=== PATIENT | female | born 1945 | race Caucasian/White ===

== ENCOUNTER → 2020-01-27 11:57 | Outpatient (BNVA) | payer MEDICARE, OTHER, SELFPAY | PROVIDERS: Family Provider Family Medicine; PCP Family Medicine; Visit Provider Family Medicine | DX: M25.511 Pain in right shoulder (principal); I10 Essential (primary) hypertension | CPT/HCPCS: 80053; 80061; 85025 ==

== ENCOUNTER → 2020-03-08 11:00 | Outpatient (BNVA) | payer MEDICARE, OTHER, SELFPAY | PROVIDERS: Family Provider Family Medicine; PCP Family Medicine; Visit Provider Family Medicine | DX: M25.511 Pain in right shoulder (principal); I10 Essential (primary) hypertension; M23.301 Other meniscus derangements, unspecified lateral meniscus, left knee; Z68.29 Body mass index [BMI] 29.0-29.9, adult | CPT/HCPCS: 80048 ==

== ENCOUNTER 2020-03-16 11:05 | Outpatient (CLI) | payer MEDICARE, OTHER, SELFPAY ==
--- NOTE | 2020-03-16 11:12 | XR_ITS ---
WS: [id number] LEFT KNEE: 3 VIEW(S) TECHNIQUE: AP, oblique(s) and lateral. HISTORY: left knee pain COMPARISON: 03/25/2017 No fracture or dislocation. Mild tricompartment osteoarthritis. Small marginal osteophytes in all compartments. No joint effusion. No soft tissue abnormality. XR/XR knee LT 3V* [id number] IMPRESSION: Mild tricompartment osteoarthritis.
== END 2020-03-16 11:06 | disposition home or self-care (01) ==
LOC: RADWPI 11:10
PROVIDERS: Family Provider Family Medicine; PCP Family Medicine; Visit Provider Family Medicine
DX: M17.12 Unilateral primary osteoarthritis, left knee (principal)
CPT/HCPCS: 73562

== ENCOUNTER → 2020-04-09 11:00 | Outpatient (BNVA) | payer MEDICARE, OTHER, SELFPAY | PROVIDERS: Family Provider Family Medicine; PCP Family Medicine; Visit Provider Specialist | DX: M25.562 Pain in left knee (principal) | CPT/HCPCS: 73560; 73565 ==

== ENCOUNTER 2020-09-21 14:23 | Outpatient (CLI) | payer MEDICARE, OTHER, SELFPAY ==
--- NOTE | 2020-09-21 14:30 | MR_ITS ---
WS: [id number] MRI RIGHT SHOULDER NONCONTRAST TECHNIQUE: Sagittal T2, coronal T1, T2 and proton density imaging. Axial gradient PDE imaging. CLINICAL INFORMATION: RIGHT GLENOHUMERAL ARTHRITIS COMPARISON: None. FINDINGS: Moderate degenerative arthritis at the AC joint with mild edema. Mild downsloping acromion. Subacromi al spurring. Mild narrowing of the subacromial space. Chronic thinning of the distal supraspinatus. N ormal infraspinatus. Normal teres minor and subscapularis. Normal biceps tendon in the bicipital groo ve. Slight medial subluxation of the biceps tendon proximally with thinning of the distal subscapular is tendon. Advanced degenerative arthritis involving the glenohumeral joint and humeral head and neck with hyper trophic spurring and subchondral cystic change. Degenerative fraying of the labrum. Small subcoracoid effusion. MR/MR shoulder RT wo con* [id number] IMPRESSION: 1. Advanced degenerative arthritis at the AC joint and glenohumeral joint with hypertrophic spurring. 2. Chronic thinning of the distal supraspinatus. Rotator cuff is intact. No hi gh-grade rotator cuff tears. 3. Normal biceps tendon in the bicipital groove. Slight medial subluxation of the biceps tendon proximally with thinning of the distal subscapularis tendon. 4. Hypertrophic spurring about the humeral head and neck and bony glenoid.
== END 2020-09-21 14:24 | disposition home or self-care (01) ==
LOC: RADWPI 14:26
PROVIDERS: PCP Family Medicine; Visit Provider Orthopaedic Surgery
DX: M19.011 Primary osteoarthritis, right shoulder (principal)
CPT/HCPCS: 73221

== ENCOUNTER 2021-01-09 20:24 | Emergency (ER) | payer MEDICARE, OTHER, SELFPAY ==
[2021-01-09 20:46] VITALS: BP 154/73; PULSE 102; RESP 17; TEMP 39.4; O2SAT 93; BMI 28.7
--- NOTE | 2021-01-09 20:58 | CTR_ITS ---
PROCEDURE INFORMATION: Exam: CT Abdomen And Pelvis With Contrast Exam date and time: 01/09/2021 8:58 PM Age: 75 years old Clinical indication: Fever and other: Possible UTI; Prior surgery; Surgery type: Tubal, RT hip; Additional info: Abdominal pain TECHNIQUE: Imaging protocol: Computed tomography of the abdomen and pelvis with contrast. Radiation optimization: All CT scans at this facility use at least one of these dose optimization techniques: automated exposure control; mA and/or kV adjustment per patient size (includes targeted exams where dose is matched to clinical indication); or iterative reconstruction. Contrast material: OMNI 300; Contrast volume: 95 ml; Contrast route: INTRAVENOUS (IV); COMPARISON: 1. CR Hip 2-3v RIGHT wwo Pelv* [id number] 12/02/2016 3:36 PM 2. OT Hip 1v RIGHT wwo Pelvis [id number] 12/02/2016 2:21 PM RADIATION DOSE METRICS: Total DLP (mGy-cm): 1437.58 FINDINGS: Lungs: Bibasilar atelectasis versus minimal infiltrate. Liver: Normal. No mass. Gallbladder and bile ducts: Gallbladder appears somewhat prominent with perhaps some wall thickening, ultrasound could further evaluate this. Pancreas: Normal. No ductal dilation. Spleen: Normal. No splenomegaly. Adrenal glands: Normal. No mass. Kidneys and ureters: Right kidney cyst, negative for follow-up advised. Stomach and bowel: Constipation. Appendix: No evidence of appendicitis. Intraperitoneal space: Unremarkable. No free air. No significant fluid collection. Vasculature: Unremarkable. No abdominal aortic aneurysm. Lymph nodes: Unremarkable. No enlarged lymph nodes. Urinary bladder: Unremarkable as visualized. Reproductive: Unremarkable as visualized. Bones/joints: Right femoral arthroplasty changes. Left femoral head nonaggressive sclerotic bony lesion. Soft tissues: Unremarkable. CT/CT abdomen pelvis w con* [id number] IMPRESSION: 1. Gallbladder appears somewhat prominent with perhaps some wall thickening, ultrasound could further evaluate this. 2. Bibasilar atelectasis versus minimal infiltrate. 3. Right kidney cyst, negative for follow-up advised. 4. Constipation. 5. Right femoral arthroplasty changes. 6. Left femoral head nonaggressive sclerotic bony lesion. COMMENTS: Consistent with the [employer]'s Incidental Findings Committee white paper (J Am Doug Radiol 2018): Any incidental renal lesion less than 1 cm or classified as too small to characterize, or any incidental cystic renal lesion characterized as simple-appearing, is likely benign. No follow-up imaging is recommended for these lesions per consensus recommendations based on imaging criteria. Radiation Dose CTDIVOL = (mGy): DLP = 1437.58 (mGy-cm)
--- NOTE | 2021-01-09 20:58 | XRR_ITS ---
PROCEDURE INFORMATION: Exam: XR Chest Exam date and time: 01/09/2021 8:58 PM Age: 75 years old Clinical indication: Other: Tired; Additional info: Reduced breath sounds TECHNIQUE: Imaging protocol: XR of the chest. Views: 1 view. COMPARISON: 1. CR Chest 2 views* [id number] 11/28/2016 12:44 PM 2. CR Chest 2 views* [id number] 11/15/2015 2:56 PM 3. MR shoulder RT wo con* [id number] 09/21/2020 2:41 PM FINDINGS: Tubes, catheters and devices: Small metallic density over the left neck may be external to the patient, please correlate with history Lungs: Unremarkable. No consolidation. Pleural spaces: Unremarkable. No pleural effusion. No pneumothorax. Heart/Mediastinum: Unremarkable. No cardiomegaly. Bones/joints: Unremarkable. XR/XR chest 1V portable [id number] IMPRESSION: Negative for infiltrate.
[2021-01-09] MEDS: acetaminophen 325 mg Tablet 1000 MG PO (21:26)
[2021-01-09] MEDS: sodium chloride 0.9% 1,000 ML 999 ML IV (21:26)
[2021-01-09 21:28] VITALS: BP 184/77; PULSE 104; RESP 18; O2SAT 95
[2021-01-09 21:37] LABS: Hematocrit 45.9 % (37.0-47.0); Hemoglobin 15.6 g/dL (11.5-15.3); Mean Corpuscular Hemoglobin 29.9 pg (28.0-34.0); Mean Corpuscular Volume 88.1 fL (81-99); Mean Platelet Volume 11.6 fL (7.4-10.4); Platelet Count 81 10^3/cmm (130-400); Red Blood Count 5.21 10^6/uL (4.1-5.3); Red Cell Distribution Width 12.5 % (12.1-15.1); White Blood Count 3.3 10^3/uL (4.0-10.0)
[2021-01-09 21:47] LABS: HCG, Serum Qual Negative (Negative)
[2021-01-09 21:57] LABS: Alanine Aminotransferase 53 U/L (0-33); Albumin Level 3.9 g/dL (3.5-5.2); Alkaline Phosphatase 104 IU/L (35-105); Aspartate Amino Transferase 71 U/L (0-32); Blood Urea Nitrogen 14 mg/dL (8-23); Calcium 8.5 mg/dL (8.5-10.5); Carbon Dioxide 21 mmol/L (22-29); Chloride 94 mmol/L (98-107); Globulin 2.9 g/dL (1.3-4.6); Glucose 134 mg/dL (65-115); Lipase 17 U/L (13-60); Osmolality Calculated 268 mOsm/kg (285-295); Sodium 128 mmol/L (136-145); Total Bilirubin 0.6 mg/dL (0.15-1.2); Total Protein 6.8 g/dL (6.6-8.7)
[2021-01-09 21:59] LABS: Anion Gap 17.1 (5-19); Potassium 4.1 mmol/L (3.5-5.1)
[2021-01-09 22:13] LABS: Absolute Neutrophil 2.6 10^3/cmm (1.4-6.5); Absolute Segmented Neutrophil 1.9 10/cmm (1.6-7.1); Band Neutrophils Absolute 0.7 10^3/cmm (0.0-1.2); Eosinophils 0 %; Lymphocytes 18 %; Lymphocytes Absolute 0.6 10^3/cmm (1.2-3.4); Monocytes Absolute 0.1 10^3/cmm (0.1-0.6); Platelet Estimate Decreased (Normal); Segmented Neutrophils 58 %; Slide Review Slide Review Perform; Total Cells Counted 100 (0-100)
[2021-01-09] MEDS: iohexol 300 mg/mL 100 mL Btl IV (22:18)
[2021-01-09 22:30] VITALS: BP 148/63; RESP 20
--- NOTE | 2021-01-09 23:02 | USR_ITS ---
PROCEDURE INFORMATION: Exam: US Abdomen, Limited; Right Upper Quadrant Exam date and time: 01/09/2021 11:02 PM Age: 75 years old Clinical indication: Abdominal pain; Acute; Additional info: Ruq US. CT notes thickened gb wall. No tenderness there. TECHNIQUE: Imaging protocol: US abdomen. Real time ultrasound with image documentation. Limited exam focused on the right upper quadrant. COMPARISON: 1. CT abdomen pelvis w con* [id number] 01/09/2021 10:[address] [place] [id number] 09/29/2016 3:14 PM FINDINGS: Liver: Normal. No masses. Gallbladder: Cholelithiasis with gallbladder sludge, negative for cholecystitis. Gallbladder wall normal in thickness measuring 2.6 mm. Common bile duct: Common bile duct normal in caliber measuring 2.4 mm. Pancreas: Visualized pancreas is unremarkable. Right kidney: Right kidney 3.2 cm cyst , negative for follow-up advised. US/US abdomen limited [id number] IMPRESSION: 1. Cholelithiasis with gallbladder sludge, negative for cholecystitis. 2. Right kidney 3.2 cm cyst , negative for follow-up advised.
[2021-01-09 23:03] LABS: Add Urine Culture? Yes; Add Urine Microscopic? YES; Amorphous Sediment Urine 4+ /hpf; Bacteria Urine 1+ /hpf; Bilirubin Urine Neg (Negative); Blood Urine 2+ (Negative); Glucose Urine UA Norm (Normal); Ketones Urine Negative (Negative); Leukocyte Esterase Urine 2+ (Negative); Nitrate Urine Negative (Negative); Protein Urine Neg (Negative); RBC Urine 0-4 /hpf (0-2); Specific Gravity, Urine 1.005 (1.005-1.030); Squamous Epithelial Cell Urine 0-4 /hpf (0-5); Urine Appearance Cloudy (CLEAR); Urine Color Yellow (Yellow); Urobilinogen Urine Norm (Negative); WBC Urine >100 /hpf (0-5); pH Urine 5 (5-7)
--- NOTE | 2021-01-09 23:30 | W.ED.FEMALGU ---
HPI - Female Genitourinary General: Chief complaint: Urogenital-Female Stated complaint: Possible UTI \Tired Time Seen by Provider: 01/09/21 21:03 History of Present Illness: HPI Narrative: The patient is a 75-year-old female with chronic blindness who comes to the ER complaining of suprapubic cramping and urine that smells bad. She is febrile with a temperature of 102.9 on arrival. She says she feels urgency as well and sometimes is not getting to the toilet in time to urinate and wets herself. Denies flank pain bilaterally. She says she does not have really any belly pain of significance other than mild cramping at the suprapubic bone. Denies vaginal discharge MD elicited complaint: dysuria and UTI Onset (ago): day(s) (3) Severity: moderate Female Urogenital Radiation: Suprapubic Quality of pain: cramping Consistency: constant Vaginal discharge: none Vaginal bleeding: none Urinary symptoms: Dysuria, Foul Smelling Urine, Frequency and Urgency Exacerbating factors: none Relieving factors: none Associated symptoms: Reports no associated symptoms; Deny abdominal pain, headache(s) or vaginal discharge Review of Systems General: Reports: 10 or more systems reviewed and unremarkable except in HPI and below Const: Denies: fatigue Eyes: Denies: change in vision, blurry vision or eye redness ENMT: Denies: throat pain, swelling of lips/tongue, ear or mastoid pain or nasal congestion Card: Denies: chest pain, palpitations, irregular heart rhythm, edema, dyspnea on exertion or orthopnea Resp: Denies: dyspnea, productive cough or non-productive cough GI: Denies: abdominal pain, diarrhea or GI cramping : Reports: urinary frequency and urinary urgency; Denies: flank pain, difficulty voiding, dysuria or vaginal discharge Musc: Denies: neck pain, back pain, extremity pain, joint pain, joint redness, limited range of motion or muscle weakness Skin/Breast: Denies: rash, pruritus, erythema, skin pain or skin tenderness Neuro: Denies: headache(s), numbness in extremities, weakness in extremities, sensory changes, difficulty walking, dizziness, confusion or Slurred speech present Psych: Denies: anxiety or depression Endo: Denies: polyuria All/Imm: Denies: urticaria, throat swelling or tongue swelling PFSH ED PFSH: Medical History (Updated 01/09/21 @ 23:36 by Son Carmona MD) Degenerative lumbar spinal stenosis Essential hypertension Optic neuritis Surgical History H/O knee surgery H/O tubal ligation History of right hip replacement Family History Other CAD (coronary artery disease) Hyperlipidemia Hypertension Stroke Social History Smoking and tobacco status: never smoked Alcohol intake: never Physical Exam Const: COMMON NORMALS: no acute distress, average body habitus, patient oriented x3, no limitations, healthy appearing, alert and well nourished GENERAL APPEARANCE: cooperative, comfortable, well kempt and well developed ORIENTATION/CONSCIOUSNESS: Yes awake, Yes oriented to person, Yes oriented to place and Yes oriented to time HENMT: COMMON NORMALS: normocephalic, external ears normal and Normal external nose present HEAD & SCALP: normal to inspection and normocephalic NOSE: Normal external nose present EXTERNAL EAR: Yes external ears normal MOUTH: Normal oral and palatal mucosa present THROAT: posterior oropharynx normal Eye: COMMON NORMALS: Equal, round and reactive pupils present and EOMs intact bilaterally GENERAL EYE: appearance normal, both eyes and all related structures PUPIL: Yes Equal, round and reactive pupils present Neck/C-Spine: COMMON NORMALS: full ROM, no lymphadenopathy, no meningeal signs and no JVD GENERAL: Yes normal visual inspection Lymph: LYMPHATIC: no lymphadenopathy noted Chest: COMMONS NORMALS: normal inspection of the chest and normal palpation of entire chest wall Resp: COMMON NORMALS: normal respiratory effort, No retractions, No use of accessory muscles, clear to auscultation bilaterally and percussion normal EFFORT & INSPECTION: Yes able to speak in complete sentences AUSCULTATION: clear to auscultation bilaterally PERCUSSION: percussion normal Cardio: COMMON NORMALS: no JVD, regular rate, regular rhythm, S1 normal heart sound present, S2 normal heart sound present and Peripheral pulses 2+ throughout RATE: regular rate RHYTHM: regular rhythm HEART SOUNDS: S1 normal heart sound present and S2 normal heart sound present PERIPHERAL PULSES: Peripheral pulses 2+ throughout GI: COMMON NORMALS: Normal to inspection, nondistended, normoactive bowel sounds present, Soft to palpation, non-tender and no masses INSPECTION: Yes normal to inspection PALPATION: Yes Soft to palpation : COMMON NORMALS: Yes no CVA tenderness BLADDER/KIDNEY EXAM: Yes no CVA tenderness Back/Pelvis: COMMON NORMALS: no CVA tenderness, thoracic and lumbar spine normal to inspection, no thoracic nor lumbar tenderness and thoraco-lumbar ROM normal Extremity: COMMON NORMALS: normal to inspection, full ROM, capillary refill normal, no joint enlargement and no pedal edema GENERAL: Yes normal exam except as noted Neuro: COMMON NORMALS: patient oriented x3, CN's II-XII intact bilaterally, moves all extremities, no focal motor deficits, no sensory deficits noted and gait normal SENSORIUM/ORIENTATION: Yes alert, Yes oriented to person, Yes oriented to place and Yes oriented to time MENINGEAL SIGNS: Yes no meningeal signs Psych: COMMON NORMALS: mental status grossly normal, Normal thought process present, cooperative, normal affect and speech normal APPEARANCE: Yes well kempt ATTITUDE: Yes calm SPEECH: Yes normal speech THOUGHT PROCESS: Normal thought process present Skin: COMMON NORMALS: no rashes or lesions noted GENERAL SKIN EXAM: no rashes or lesions noted Course Vital Signs: Vital signs: Vital Signs Temperature 102.9 F H 01/09/21 20:46 Pulse Rate 104 H 01/09/21 21:28 Respiratory Rate 20 H 01/09/21 22:30 Blood Pressure 148/63 01/09/21 22:30 Pulse Oximetry 95 01/09/21 21:28 MDM - Female MDM Narrative: Medical decision making narrative: Discussed with her she has a urinary tract infection. She was given a liter of IV fluids and ceftriaxone. She will be discharged with Keflex. She already feels better after the Tylenol and fluids have reduced her fever. She also has gallstones. She knows she has had this problem for 10 years and is not having pain there. She prefers to talk to her primary care physician about it tomorrow which she has an appointment already scheduled. She is stable for discharge with Keflex and she will drink lots of fluids to help pass the infection. Lab Data: Labs: Lab Results 01/09/21 01/09/21 01/09/21 Range/Units 21:25 21:25 21:25 WBC 3.3 L (4.0-10.0) 10^3/ uL RBC 5.21 (4.1-5.3) 10^6/u L Hgb 15.6 H (11.5-15.3) g/dL Hct 45.9 (37.0-47.0) % MCV 88.1 (81-99) fL MCH 29.9 (28.0-34.0) pg MCHC 34.0 (30.0-36.0) g/dL RDW 12.5 (12.1-15.1) % Plt Count 81 L (130-400) 10^3/c mm MPV 11.6 H (7.4-10.4) fL Lymph % (Auto) Not Reportable Winston % (Auto) Not Reportable Lymph # (Auto) Not Reportable Winston # (Auto) Not Reportable Total Counted 100 (0-100) Atypical Lymphs % 0.0 (0-5) % Absolute Neutrophi ls 2.6 (1.4-6.5) 10^3/c mm Segmented Neutroph ils 58 % Abs Segm Neuts (Ma n) 1.9 (1.6-7.1) 10/cmm Band Neutrophils 21.0 % Abs Band Neuts (Ma n) 0.7 (0.0-1.2) 10^3/c mm Absolute Lymphocyt es 0.6 L (1.2-3.4) 10^3/c mm Lymphocytes (Manua l) 18 % Monocytes (Manual) 3.0 % Absolute Monocytes 0.1 (0.1-0.6) 10^3/c mm Eosinophils (Manua l) 0 % Absolute Eosinophi ls 0.0 (0.0-0.7) 10^3/c mm Basophils (Manual) 0.0 % Absolute Basophils 0.0 (0.0-0.2) 10^3/c mm Platelet Estimate Decreased L (Normal) Sodium 128 L (136-145) mmol/L Potassium 4.1 (3.5-5.1) mmol/L Chloride 94 L (98-107) mmol/L Carbon Dioxide 21 L (22-29) mmol/L Anion Gap 17.1 (5-19) BUN 14 (8-23) mg/dL Creatinine 0.7 (0.5-0.9) mg/dL GFR Calculation Not Reportable Glucose 134 H (65-115) mg/dL Calculated Osmolal ity 268 L (285-295) mOsm/k g Lactate 1.0 (0.5-2.2) mmol/L Calcium 8.5 (8.5-10.5) mg/dL Total Bilirubin 0.6 (0.15-1.2) mg/dL AST 71 H (0-32) U/L ALT 53 H (0-33) U/L Alkaline Phosphata se 104 (35-105) IU/L Total Protein 6.8 (6.6-8.7) g/dL Albumin 3.9 (3.5-5.2) g/dL Globulin 2.9 (1.3-4.6) g/dL Lipase 17 (13-60) U/L HCG, Qual (Negative) Urine Color (Yellow) Urine Appearance (CLEAR) Urine pH (5-7) Ur Specific Gravit y (1.005-1.030) Urine Protein (Negative) Urine Glucose (UA) (Normal) Urine Ketones (Negative) Urine Blood (Negative) Urine Nitrate (Negative) Urine Bilirubin (Negative) Urine Urobilinogen (Negative) mg/dL Ur Leukocyte Kalee ase (Negative) Urine RBC (0-2) /hpf Urine WBC (0-5) /hpf Ur Squamous Epith Cells (0-5) /hpf Amorphous Sediment /hpf Urine Bacteria (NONE) /hpf Hepatitis A IgM Ab (Nonreactive) Hep Bs Antigen (Nonreactive) Hep B Core IgM Ab (Nonreactive) Hepatitis C Antibo dy (Nonreactive) 01/09/21 01/09/21 01/09/21 Range/Units 21:25 21:25 22:44 WBC (4.0-10.0) 10^3/ uL RBC (4.1-5.3) 10^6/u L Hgb (11.5-15.3) g/dL Hct (37.0-47.0) % MCV (81-99) fL MCH (28.0-34.0) pg MCHC (30.0-36.0) g/dL RDW (12.1-15.1) % Plt Count (130-400) 10^3/c mm MPV (7.4-10.4) fL Lymph % (Auto) Winston % (Auto) Lymph # (Auto) Winston # (Auto) Total Counted (0-100) Atypical Lymphs % (0-5) % Absolute Neutrophi ls (1.4-6.5) 10^3/c mm Segmented Neutroph ils % Abs Segm Neuts (Ma n) (1.6-7.1) 10/cmm Band Neutrophils % Abs Band Neuts (Ma n) (0.0-1.2) 10^3/c mm Absolute Lymphocyt es (1.2-3.4) 10^3/c mm Lymphocytes (Manua l) % Monocytes (Manual) % Absolute Monocytes (0.1-0.6) 10^3/c mm Eosinophils (Manua l) % Absolute Eosinophi ls (0.0-0.7) 10^3/c mm Basophils (Manual) % Absolute Basophils (0.0-0.2) 10^3/c mm Platelet Estimate (Normal) Sodium (136-145) mmol/L Potassium (3.5-5.1) mmol/L Chloride (98-107) mmol/L Carbon Dioxide (22-29) mmol/L Anion Gap (5-19) BUN (8-23) mg/dL Creatinine (0.5-0.9) mg/dL GFR Calculation Glucose (65-115) mg/dL Calculated Osmolal ity (285-295) mOsm/k g Lactate (0.5-2.2) mmol/L Calcium (8.5-10.5) mg/dL Total Bilirubin (0.15-1.2) mg/dL AST (0-32) U/L ALT (0-33) U/L Alkaline Phosphata se (35-105) IU/L Total Protein (6.6-8.7) g/dL Albumin (3.5-5.2) g/dL Globulin (1.3-4.6) g/dL Lipase (13-60) U/L HCG, Qual Negative (Negative) Urine Color Yellow (Yellow) Urine Appearance Cloudy (CLEAR) Urine pH 5 (5-7) Ur Specific Gravit y 1.005 (1.005-1.030) Urine Protein Neg (Negative) Urine Glucose (UA) Norm (Normal) Urine Ketones Negative (Negative) Urine Blood 2+ H (Negative) Urine Nitrate Negative (Negative) Urine Bilirubin Neg (Negative) Urine Urobilinogen Norm (Negative) mg/dL Ur Leukocyte Kalee ase 2+ H (Negative) Urine RBC 0-4 H (0-2) /hpf Urine WBC >100 H (0-5) /hpf Ur Squamous Epith Cells 0-4 H (0-5) /hpf Amorphous Sediment 4+ /hpf Urine Bacteria 1+ H (NONE) /hpf Hepatitis A IgM Ab Non-reactive (Nonreactive) Hep Bs Antigen Non-reactive (Nonreactive) Hep B Core IgM Ab Non-reactive (Nonreactive) Hepatitis C Antibo dy Non-reactive (Nonreactive) Discharge Plan Discharge Patient Disposition: Home Clinical Impression: Urinary tract infection Condition: Stable Prescriptions: New cephalexin 500 mg capsule 500 mg PO BID 7 Days Qty: 14 RF: 0 No Action diclofenac potassium 25 mg capsule 25 mg PO BID PRN (Reason: pain) Qty: 60 RF: 0 Discharge Orders: Discharge ED (Routine); Ordered 01/09/21 Ordered By: Son Carmona Referrals: Shara Jung DO [Primary Care Provider] - Discharge Diet: Advance as tolerated Discharge Activity: Resume usual activity Patient Instructions: Urinary Tract Infection in Women (ED), Opioid Safety Activity Restrictions/Additional Instructions: You have a urinary tract infection. Please take the Keflex for a week as directed to help treat this and drink lots of fluids. Return to the ER at anytime with worsening symptoms otherwise follow-up with your primary care physician next week and get your urine retested to make sure your infection has resolved. Also have your sodium rechecked as it was low here today at 128. This is likely related to your infection and can improve spontaneously. Also have your liver enzymes checked. They were slightly elevated here today. Hepatitis panel was negative. Coding Level of Care Code ED Order Analyst for [place] Fwd Exam Comprehensive
[2021-01-09 23:32] LABS: Hepatitis A Antibody IgM Non-Reactive (Nonreactive); Hepatitis B Core IgM Non-Reactive (Nonreactive); Hepatitis B Surface Antigen Non-Reactive (Nonreactive); Hepatitis C Virus Antibody Non-Reactive (Nonreactive)
[2021-01-10] VITALS: BP 116/60; PULSE 74; RESP 16; O2SAT 93
[2021-01-10] MEDS: cefTRIAXone 1,000 MG in sodium chloride 0.9% (plus) 50 ML 100 MG IV (00:16)
[2021-01-10 01:03] VITALS: BP 116/60; PULSE 79; RESP 16; TEMP 36.9; O2SAT 94
== END 2021-01-10 01:06 | disposition home or self-care (01) ==
PROVIDERS: Emergency Provider Family Medicine; PCP Family Medicine
DX: N39.0 Urinary tract infection, site not specified (principal); I10 Essential (primary) hypertension
CPT/HCPCS: 36415; 71045; 74177; 76705; 80053; 80074; 81001; 83605; 83690; 84703; 85007; 85025; 87040; 87086; 96365; 99284; J0696; J7030; Q9967

== ENCOUNTER 2021-01-11 08:50 | Inpatient (IN) | payer MEDICARE, OTHER, SELFPAY ==
[2021-01-11] VITALS (13 sets, daily range): BP systolic 101–147; BP diastolic 51–94; PULSE 67–105; RESP 16–20; TEMP 36.2–39.6; O2SAT 89–94; BMI 28.7
--- NOTE | 2021-01-11 10:11 | ECG_ITS ---
[facility] Test Date: 2021-01-11 Pat Name: Ivania Graf Department: Room: Gender: Female Chronic Care Nurse: : 1945 Requested By: Amaury Alejo Order Number: [id number] Jerman MD: Maricruz Thakkar M.D. Measurements Intervals [place] Rate: 101 P: -1 ND: 140 QRS: 14 QRSD: 88 T: 60 QT: 334 QTc: 434 Interpretive Statements SINUS TACHYCARDIA Compared to ECG 11/28/2016 12:17:19 ST (T wave) deviation now present Sinus rhythm no longer present Myocardial infarct finding no longer present Electronically Signed On 01-12-2021 7:24:49 CDT by Maricruz Thakkar M.D. [id number]
--- NOTE | 2021-01-11 10:11 | CT_ITS ---
WS: [id number] CT HEAD NONCONTRAST HISTORY: fall/closed head injury w LOC TECHNIQUE: Contiguous axial imaging performed through the brain in 2.5 mm imaging. Bone and soft tiss ue windows. Sagittal and coronal reformats reviewed. All CT scans at [facility] use at ast one of these dose optimization techniques: automated exposure control; mA and/or kV adjustment pe r patient size (includes targeted exams where dose is matched to clinical indication); or iterative r econstruction. DLP: 940.86 mGy.cm COMPARISON: None available. No acute intracranial hemorrhage, midline shift or mass effect. Mild symmetric cerebral atrophy. Moderate to severe low-attenuation in the white matter from chronic ischemic disease. There are multiple small lacunar infarcts bilaterally. Ventricles: Normal size with no hydrocephalus. Paranasal sinuses: Small amount mucoperiosteal thickening in the posterior ethmoid air cells. No air- fluid levels in the sinuses. Mastoid air cells: Well pneumatized. Calvarium and scalp: Skull is intact with no soft tissue edema or swelling. CT/CT head wo con* [id number] IMPRESSION: 1. No acute intracranial hemorrhage or edema. 2. No skull fracture. 3. Mild atrophy with moderate to severe chronic microvascular ischemic disease .
--- NOTE | 2021-01-11 10:11 | XR_ITS ---
WS: [id number] PORTABLE CHEST HISTORY: dyspnea/cough COMPARISON: 01/09/2021 Mild stable elevation of the LEFT diaphragm with atelectasis. Lungs are clear. No pneumothorax. No pl eural effusion or pneumothorax. Cardiac size: Normal. Mediastinum/Aorta: Mild atherosclerosis aorta. Mild degenerative changes at the glenohumeral joints bilaterally. No rib fractures are identified. XR/XR chest 1V portable [id number] IMPRESSION: Stable chest with no acute cardiopulmonary disease.
[2021-01-11 10:22] LABS: Hematocrit 43.8 % (37.0-47.0); Hemoglobin 15.2 g/dL (11.5-15.3); Mean Corpuscular HGB Conc 34.7 g/dL (30.0-36.0); Mean Corpuscular Volume 86.6 fL (81-99); Platelet Count 48 10^3/cmm (130-400); Red Blood Count 5.06 10^6/uL (4.1-5.3); Red Cell Distribution Width 12.8 % (12.1-15.1); White Blood Count 3.5 10^3/uL (4.0-10.0)
--- NOTE | 2021-01-11 10:24 | XR_ITS ---
WS: [id number] Right shoulder, 3 views, 01/11/2021 Clinical Data: pain fall Comparison: None. Findings: No new fractures or dislocations are seen. The AC joint is normal. The adjacent right clavicle, right scapula and ribs show only an old right lateral seventh rib fracture. The soft tissues are unremarka ble. There is osteoarthritis of the glenohumeral joint with sclerosis and spur formation of the humeral he ad. There is sclerosis of the glenoid articulating surface). XR/XR shoulder RT min 2V* [id number] Impression: 1. 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 2. Negative for new fracture.
--- NOTE | 2021-01-11 10:24 | XR_ITS ---
WS: [id number] RIGHT ELBOW: 3 VIEW(S) TECHNIQUE: AP, oblique and lateral. HISTORY: pain COMPARISON: None available. No acute fractures or dislocation. No joint effusion. No soft tissue abnormality. XR/XR elbow RT min 3V* [id number] IMPRESSION: Normal RIGHT elbow.
--- NOTE | 2021-01-11 10:24 | XR_ITS ---
WS: [id number] RIGHT HUMERUS: 2 VIEW(S) TECHNIQUE: AP and lateral. HISTORY: pain fall COMPARISON: None available. No acute fracture or dislocation. RIGHT shoulder joint is not well seen in 2 views on this projection . Osteopenia. No foreign bodies and visualized upper thorax is unremarkable. XR/[place] [id number] IMPRESSION: No RIGHT humeral fracture identified.
--- NOTE | 2021-01-11 10:30 | ED_ITS ---
HPI - Fall General: Chief Complaint: Fall Stated Complaint: fall, head and body pain Time Seen by Provider: 01/11/21 09:54 History of Present Illness: HPI Narrative: 75-year-old female who was seen earlier this week diagnosed with a UTI she did not get any of her prescriptions filled. At home she stumbled and fell patient has a history of glaucoma with severe vision loss she struck the back of her head there is no loss of consciousness she is complaining of some middle and low back pain. Patient reported to the nurse that she had not lost consciousness she seems more uncertain when I talked to her. complaint: fall Onset (ago): minute(s) Fall from: standing Fall witnessed: no Place fall occurred: home Loss of consciousness: Unsure Prolonged down time: no Symptoms prior to fall: lightheadedness and dizziness Context: tripped/slipped and history of frequent falls Location of injury: back Associated symptoms-after fall: Reports confusion, difficulty walking, lightheadedness and weakness; Denies abdominal pain, chest pain, headache(s), hematuria, neck pain, numbness, short of breath or vertigo Review of Systems Const: Denies: fever(s), chills, body aches, change in appetite, fatigue or ma laise ENMT: Denies: throat pain, ear or mastoid pain, nasal discharge or nasal congestion Card: Reports: lightheadedness; Denies: chest pain Resp: Denies: dyspnea, productive cough or non-productive cough GI: Denies: abdominal pain : Denies: hematuria Musc: Denies: neck pain Skin/Breast: Denies: rash or pruritus Neuro: Reports: difficulty walking and confusion; Denies: headache(s) or vertigo PFS ED PFSH: Medical History (Updated 01/24/21 @ 06:56 by Amaury Lao DO) Degenerative lumbar spinal stenosis Essential hypertension Optic neuritis Surgical History H/O knee surgery H/O tubal ligation History of right hip replacement Family History Other CAD (coronary artery disease) Hyperlipidemia Hypertension Stroke Social History Smoking and tobacco status: never smoked Alcohol intake: never Physical Exam Const: COMMON NORMALS: no acute distress GENERAL APPEARANCE: cooperative and comfortable HENMT: COMMON NORMALS: normocephalic, atraumatic, hearing grossly normal bilaterally and external ears normal HEAD & SCALP: normocephalic and atraumatic EXTERNAL EAR: Yes external ears normal Neck/C-Spine: COMMON NORMALS: full ROM, no lymphadenopathy, supple and no JVD Lymph: LYMPHATIC: no lymphadenopathy noted and no lymphedema noted Resp: COMMON NORMALS: normal respiratory effort, No retractions, No use of accessory muscles and clear to auscultation bilaterally AUSCULTATION: clear to auscultation bilaterally Cardio: COMMON NORMALS: no JVD, regular rate, regular rhythm and No murmurs present (Cardio) RATE: regular rate RHYTHM: regular rhythm GI: COMMON NORMALS: Soft to palpation and No hepatosplenomegaly present AUSCULTATION: Yes normoactive bowel sounds PALPATION: Yes Soft to palpation, No Tenderness to palpation present (GI), No Guarding due to palpation present (GI) and Yes No hepatosplenomegaly present Extremity: COMMON NORMALS: normal to inspection, capillary refill normal, no clubbing, cyanosis or edema, no calf tenderness and no pedal edema Skin: COMMON NORMALS: no rashes or lesions noted GENERAL SKIN EXAM: no rashes or lesions noted Course Vital Signs: Vital signs: Vital Signs Temperature 99.1 F 01/15/21 15:24 Pulse Rate 90 01/15/21 15:24 Respiratory Rate 16 01/15/21 15:24 Blood Pressure 160/91 01/15/21 15:24 Pulse Oximetry 91 01/15/21 15:24 MDM - Fall MDM Narrative: Medical decision making narrative: Patient has fever of 103, recent UTI as well as severe back pain from the compression fracture we will go ahead and admit for pain control treat the UTI follow cultures. She is also thrombocytopenic and very mildly hyponatremic discussed with hospitalist. Lab Data: Labs: Lab Results 01/11/21 01/11/21 01/11/21 Range/Units 10:12 10:12 10:12 WBC 3.5 L (4.0-10.0) 10^3/ uL RBC 5.06 (4.1-5.3) 10^6/u L Hgb 15.2 (11.5-15.3) g/dL Hct 43.8 (37.0-47.0) % MCV 86.6 (81-99) fL MCH 30.0 (28.0-34.0) pg MCHC 34.7 (30.0-36.0) g/dL RDW 12.8 (12.1-15.1) % Plt Count 48 L (130-400) 10^3/c mm MPV 13.0 H (7.4-10.4) fL Lymph % (Auto) Not Reportable [place] % (Auto) Not Reportable Lymph # (Auto) Not Reportable [place] # (Auto) Not Reportable Total Counted 100 (0-100) Atypical Lymphs % 1.0 (0-5) % Absolute Neutrophi ls 2.7 (1.4-6.5) 10^3/c mm Segmented Neutroph ils 29 % Abs Segm Neuts (Ma n) 1.0 L (1.6-7.1) 10/cmm Band Neutrophils 49.0 % Abs Band Neuts (Ma n) 1.7 H (0.0-1.2) 10^3/c mm Absolute Lymphocyt es 0.5 L (1.2-3.4) 10^3/c mm Lymphocytes (Manua l) 13 % Monocytes (Manual) 8.0 % Absolute Monocytes 0.3 (0.1-0.6) 10^3/c mm Eosinophils (Manua l) 0 % Absolute Eosinophi ls 0.0 (0.0-0.7) 10^3/c mm Basophils (Manual) 0.0 % Absolute Basophils 0.0 (0.0-0.2) 10^3/c mm Platelet Estimate Decreased L (Normal) Sodium 132 L (136-145) mmol/L Potassium 4.0 (3.5-5.1) mmol/L Chloride 95 L (98-107) mmol/L Carbon Dioxide 22 (22-29) mmol/L Anion Gap 19.0 (5-19) BUN 15 (8-23) mg/dL Creatinine 0.8 (0.5-0.9) mg/dL GFR Calculation Not Reportable Glucose 140 H (65-115) mg/dL Calculated Osmolal ity 277 L (285-295) mOsm/k g Lactic Acid 1.6 (0.5-2.2) mmol/L Calcium 8.4 L (8.5-10.5) mg/dL Total Bilirubin 0.6 (0.15-1.2) mg/dL AST 74 H (0-32) U/L ALT 54 H (0-33) U/L Alkaline Phosphata se 115 H (35-105) IU/L Creatine Kinase 59 (26-192) U/L Total Protein 6.4 L (6.6-8.7) g/dL Albumin 3.8 (3.5-5.2) g/dL Globulin 2.6 (1.3-4.6) g/dL Lipase 20 (13-60) U/L Urine Color (Yellow) Urine Appearance (CLEAR) Urine pH (5-7) Ur Specific Gravit y (1.005-1.030) Urine Protein (Negative) Urine Glucose (UA) (Normal) Urine Ketones (Negative) Urine Blood (Negative) Urine Nitrate (Negative) Urine Bilirubin (Negative) Urine Urobilinogen (Negative) mg/dL Ur Leukocyte Kalee ase (Negative) Urine RBC (0-2) /hpf Urine WBC (0-5) /hpf Ur Squamous Epith Cells (0-5) /hpf Amorphous Sediment Urine Bacteria (NONE) /hpf Urine Mucus /hpf Influenza Type A A g (Negative) Influenza Type B A g (Negative) SARS-CoV-2 Ag (Rap id) (Negative) 01/11/21 01/11/21 01/11/21 Range/Units 12:42 13:45 13:45 WBC (4.0-10.0) 10^3/ uL RBC (4.1-5.3) 10^6/u L Hgb (11.5-15.3) g/dL Hct (37.0-47.0) % MCV (81-99) fL MCH (28.0-34.0) pg MCHC (30.0-36.0) g/dL RDW (12.1-15.1) % Plt Count (130-400) 10^3/c mm MPV (7.4-10.4) fL Lymph % (Auto) [place] % (Auto) Lymph # (Auto) [place] # (Auto) Total Counted (0-100) Atypical Lymphs % (0-5) % Absolute Neutrophi ls (1.4-6.5) 10^3/c mm Segmented Neutroph ils % Abs Segm Neuts (Ma n) (1.6-7.1) 10/cmm Band Neutrophils % Abs Band Neuts (Ma n) (0.0-1.2) 10^3/c mm Absolute Lymphocyt es (1.2-3.4) 10^3/c mm Lymphocytes (Manua l) % Monocytes (Manual) % Absolute Monocytes (0.1-0.6) 10^3/c mm Eosinophils (Manua l) % Absolute Eosinophi ls (0.0-0.7) 10^3/c mm Basophils (Manual) % Absolute Basophils (0.0-0.2) 10^3/c mm Platelet Estimate (Normal) Sodium (136-145) mmol/L Potassium (3.5-5.1) mmol/L Chloride (98-107) mmol/L Carbon Dioxide (22-29) mmol/L Anion Gap (5-19) BUN (8-23) mg/dL Creatinine (0.5-0.9) mg/dL GFR Calculation Glucose (65-115) mg/dL Calculated Osmolal ity (285-295) mOsm/k g Lactic Acid (0.5-2.2) mmol/L Calcium (8.5-10.5) mg/dL Total Bilirubin (0.15-1.2) mg/dL AST (0-32) U/L ALT (0-33) U/L Alkaline Phosphata se (35-105) IU/L Creatine Kinase (26-192) U/L Total Protein (6.6-8.7) g/dL Albumin (3.5-5.2) g/dL Globulin (1.3-4.6) g/dL Lipase (13-60) U/L Urine Color Yellow (Yellow) Urine Appearance Hazy A (CLEAR) Urine pH 5 (5-7) Ur Specific Gravit y 1.020 (1.005-1.030) Urine Protein Neg (Negative) Urine Glucose (UA) Norm (Normal) Urine Ketones 1+ H (Negative) Urine Blood Neg (Negative) Urine Nitrate Negative (Negative) Urine Bilirubin Neg (Negative) Urine Urobilinogen Norm (Negative) mg/dL Ur Leukocyte Kalee ase Negative (Negative) Urine RBC 0-4 H (0-2) /hpf Urine WBC None (0-5) /hpf Ur Squamous Epith Cells 5-10 H (0-5) /hpf Amorphous Sediment Not Reportable Urine Bacteria 1+ H (NONE) /hpf Urine Mucus 1+ /hpf Influenza Type A A g Negative (Negative) Influenza Type B A g Negative (Negative) SARS-CoV-2 Ag (Rap id) Negative (Negative) Discharge Plan Discharge Patient Disposition: Admitted As Inpatient Admit Provider: Carlos Daniels Clinical Impression: Closed T12 fracture, Cystitis, Thrombocytopenia, Hyponatremia, Fall Condition: Stable Coding Level of Care Code ED Food Services Director for Camden Dacosta
--- NOTE | 2021-01-11 10:31 | CT_ITS ---
WS: [id number] CT THORACIC SPINE HISTORY: pain/fall TECHNIQUE: Contiguous 2.5 mm axial images are reviewed to thoracic spine. Images are reformatted in s agittal and coronal planes. All CT scans at [facility] use at least one of these dose opt imization techniques: automated exposure control; mA and/or kV adjustment per patient size (includes targeted exams where dose is matched to clinical indication); or iterative reconstruction. DLP: 1524.19 mGy.cm COMPARISON: None available. Mild increase in thoracic kyphosis. Posterior alignment is normal. Acute 10% compression fracture at T12. There are vertical and horizontal components of this fracture. No definite extension into the po sterior elements and no retropulsion of the vertebral body. No cord contact. Additional anterior disc space narrowing most significant from T4 through T8. Partial fusion across t he anterior C5-6 disc space. No pedicle or transverse process or spinous process fractures are identi fied. No compromise of the central canal or disc protrusions. No significant foraminal stenosis. Atherosclerosis of aorta is mild. Interstitial thickening throughout both lungs probably due to chron ic mild fibrosis. Heart appears at least mildly enlarged. CT/CT thoracic spin wo con* [id number] IMPRESSION: 1. Acute T12, 10% vertebral body compression fracture with vertical and horizo ntal components. No posterior retropulsion. 2. Increase in thoracic kyphosis with disc space narrowings through the centra l thoracic spine.
--- NOTE | 2021-01-11 10:31 | CT_ITS ---
WS: [id number] CT LUMBAR SPINE, noncontrast. HISTORY: pain/fall TECHNIQUE: Contiguous 2.5 mm axial imaging are performed. Sagittal and coronal reformats are submitte d and reviewed. All CT scans at [facility] use at least one of these dose optimization te chniques: automated exposure control; mA and/or kV adjustment per patient size (includes targeted exa ms where dose is matched to clinical indication); or iterative reconstruction. IV contrast: None DLP: 1843.92 mGy.cm COMPARISON: 09/29/2016 L4 anterolisthesis by 7 mm. No pars defect. Mild disc space narrowing and desiccation with vacuum dis c phenomenon at L4-5 and L5-S1. No acute lumbar spine fractures. Visualized sacrum is negative for ac arian fracture. L1-2: Normal. L2-3: Mild annular disc bulging. No significant stenosis. L3-4: Moderate annular disc bulging with mild ligamentum flavum hypertrophy. Mild central and foramin al stenosis. L4-5: Unroofing of the disc with disc contacting the ventral thecal sac and extending into the latera l recesses and subarticular foramina. Advanced facet joint disease. Moderate to severe central, later al recess and foraminal stenosis. Significant contact upon the L5 nerve roots bilaterally. L5-S1: Mild annular disc bulge with a shallow RIGHT paracentral disc protrusion extending slightly in to the lateral recess. Vertebral body osteophytes extending into the subarticular recess. Mild centra l stenosis with moderate bilateral subarticular recess and foraminal stenosis. Mild atherosclerosis aorta. Low-attenuation mass in the RIGHT kidney is likely a cyst. This was also described on a prior study from 2017 with no increase in size. This cystic mass measures 3.[address]/CT lumbar spine wo con* [id number] IMPRESSION: 1. No acute lumbar spine fracture. 2. Moderate to severe central, lateral recess and foraminal stenosis at L4-5. 3. Grade 1 spondylolisthesis of L4. 4. Mild central with moderate bilateral subarticular and foraminal stenosis at L5-S1.
[2021-01-11 10:39] LABS: Lactic Sepsis W/Reflex 1.6 mmol/L (0.5-2.2)
[2021-01-11 10:40] LABS: Alanine Aminotransferase 54 U/L (0-33); Albumin Level 3.8 g/dL (3.5-5.2); Alkaline Phosphatase 115 IU/L (35-105); Aspartate Amino Transferase 74 U/L (0-32); Blood Urea Nitrogen 15 mg/dL (8-23); Calcium 8.4 mg/dL (8.5-10.5); Carbon Dioxide 22 mmol/L (22-29); Chloride 95 mmol/L (98-107); Creatine Phosphokinase 59 U/L (26-192); Globulin 2.6 g/dL (1.3-4.6); Glucose 140 mg/dL (65-115); Lipase 20 U/L (13-60); Osmolality Calculated 277 mOsm/kg (285-295); Sodium 132 mmol/L (136-145); Total Bilirubin 0.6 mg/dL (0.15-1.2); Total Protein 6.4 g/dL (6.6-8.7)
[2021-01-11 11:00] LABS: Slide Review Slide Review Perform
[2021-01-11 11:04] LABS: Absolute Neutrophil 2.7 10^3/cmm (1.4-6.5); Band Neutrophils Absolute 1.7 10^3/cmm (0.0-1.2); Eosinophils 0 %; Lymphocytes 13 %; Lymphocytes Absolute 0.5 10^3/cmm (1.2-3.4); Monocytes Absolute 0.3 10^3/cmm (0.1-0.6); Platelet Estimate Decreased (Normal); Segmented Neutrophils 29 %; Total Cells Counted 100 (0-100)
[2021-01-11] MEDS: sodium chloride 0.9% 1,000 ML 999 ML IV (12:08)
[2021-01-11] MEDS: morphine 4 mg/mL SDV 1 mL IVP (12:09)
[2021-01-11] MEDS: acetaminophen 325 mg Tablet 650 MG PO (12:09)
[2021-01-11] MEDS: cefTRIAXone 2,000 MG in sodium chloride 0.9% (plus) 50 ML 100 MG IV ×2 (12:09→23:44)
[2021-01-11 13:00] LABS: Add Urine Microscopic? YES; Bilirubin Urine Neg (Negative); Blood Urine Neg (Negative); Glucose Urine UA Norm (Normal); Ketones Urine 1+ (Negative); Leukocyte Esterase Urine Negative (Negative); Nitrate Urine Negative (Negative); Protein Urine Neg (Negative); Urine Appearance Hazy (CLEAR); Urine Color Yellow (Yellow); Urobilinogen Urine Norm (Negative); pH Urine 5 (5-7)
[2021-01-11 13:07] LABS: RBC Urine 0-4 /hpf (0-2)
[2021-01-11 13:08] LABS: Add Urine Culture? No; Bacteria Urine 1+ /hpf; Mucus Urine 1+ /hpf
[2021-01-11 14:27] LABS: Influenza A by IFA Negative (Negative); Influenza B by IFA Negative (Negative); SARS Covid-2 Antigen Negative (Negative)
--- NOTE | 2021-01-11 17:53 | PM.HP ---
Providers/Chief Complaint Admitting Physician: Carlos Daniels Primary Care Provider: Shara Jung DO Chief Complaint: fall, head and body pain History of Present Illness 75-year-old with a past medical history significant for hypertension, degenerative lumbar spinal Stenosis and clinical blindness was presented to the hospital with generalized weakness with fall. Stated she lost her balance after tripping over something. Landed on her right upper extremity. Denied head trauma or loss of conciseness. Noted to have fever, chills and body aches. Patient was recently seen in emergency room on 01/09/2021 with suprapubic cramping, dysuria, frequency and urgency. Patient was diagnosed with urinary tract infection and discharged On cephalexin which was electronically prescribed however not picked up by patient. Continued to have these symptoms in addition to fever and chills. Upon arrival to ER Today her laboratory workup showed a WBC of 3.5, hemoglobin of 15.2, hematocrit of 43.8 and a platelet count of 48.This was a decreased from 81 on most recent labs. No prior history of thrombocytopenia. Sodium 132, potassium 4.0, chloride 95, bicarb 22, BUN 15 and creatinine of 0.8. Calcium of 8 4. AST of 74, ALT of 54 and alkaline phosphatase of 155. Urinalysis today showed negative nitrites as well as negative for leukocyte esterase. 1+ bacteria. Prior urinalysis on 01/09 8 shown over 100 WBCs, 2+ leukocyte esterase. Influenza a/B, covered 19 antigen were negative. Covid-19 PCR was sent however pending. Imaging studies today showed chest x-ray which did not have any acute cardiopulmonary abnormalities.Head CT without contrast was performed which did not show any evidence of acute intracranial abnormality. CT of thoracic /lumbar spine without contrast showed acute T12 compression fracture with out any posterior retropulsion. Lumbar spine showed moderate to severe central, lateral recess and foramina stenosis. Patient stated she felt better, did not have any radicular pain. No loss of bowel or bladder. Patient vitals on arrival showed a BP of 138/79, HR of 105, RR of 20 and a temp of 103.2. Patient was started on IVF and Rocephin 2g IV daily. Review of Systems General: Reports: 10 or more systems reviewed and unremarkable except in HPI and below Medications/Allergies Home Medications Medication Instructions Recorded Confirmed Last Taken Type bimatoprost [Lumigan] 1 drp OPHTHALMIC (EYE) BID 01/11/21 01/11/21 01/10/21 History brimonidine [Alphagan P] 1 drp OPHTHALMIC (EYE) BID 01/11/21 01/11/21 01/10/21 History cephalexin 500 mg capsule 500 mg PO BID 7 Days #14 cap 01/11/21 01/11/21 Unknown Rx prednisolone acetate 1 drp OPHTHALMIC (EYE) QID 01/11/21 01/11/21 01/10/21 History Allergies Allergy/AdvReac Type Severity Reaction Status Date / Time Penicillins AdvReac Mild UNKNOWN Verified 01/11/21 09:32 PFSH Acute PFSH: Medical History (Updated 01/10/21 @ 15:01 by Shara Jung DO) Degenerative lumbar spinal stenosis Essential hypertension Optic neuritis Surgical History H/O knee surgery H/O tubal ligation History of right hip replacement Family History Other CAD (coronary artery disease) Hyperlipidemia Hypertension Stroke Social History Smoking and tobacco status: never smoked Alcohol intake: never Vitals/I&O/Wt Last Vital Signs Temp 103 F H 01/11/21 10:11 Pulse 67 01/11/21 17:48 Resp 18 01/11/21 12:09 BP 101/51 01/11/21 17:48 Pulse Ox 92 01/11/21 17:48 Weight last 48 hrs Weight 66.678 kg Physical Exam Narrative: EXAM NARRATIVE: General- alert awake and oriented HEENT-grossly unremarkable CVS -sinus tachycardia Abdomen-soft nontender nondistended Extremities- no edema No focal weakness or sensory deficit Data : 01/11/21 10:12 01/11/21 10:12 Micro: Microbiology 01/11/21 11:53 Blood Culture - Preliminary Blood SPECIMEN COLLECTED 01/11/21 10:12 Blood Culture - Preliminary Blood SPECIMEN COLLECTED A&P Assessment and plan (1) Urinary tract infection: Status: Acute Sepsis suspected Urinary tract infection Tmax 103.2 on arrival HR 105, WBC 3.5 01/09 - >100 WBC, 2+ leukocyte - Urine and blood Culture preliminary - Negative 01/09 - > UA bacteria however neg for leuk.esterace or nitrates 01/11 - Blood culture x 2 drawn Continue Rocephin 2G IV q24hr Fall with subsequent Acute T12 fracture / mod-severe lumbar spinal stenosis Focal pain, MS bilateral LE - > 5/5, currently ambulating with out assistance, no lumbar rediculopathy, numbness or tingling. No evidence of retropulsuion to spine Concern given low platelets and acute trauma of bleeding in to fracture Neuro-checks q2x4 - > q4hr Will need stat MRI and likely transfer for spine surgery eval. No spine surgery available for consult at [facility] Fall precaution Pain control Ambulate with assistance. Thrombocytopenia Platelets 81 -> 48 Possibly due to sepsis Bleeding precautions No anti-plts or anticoagulation Repeat labs in am Transaminitis AST -> 74 ALT -> 54 Alp-> 115 Hepatitis panel negative. 01/09 - CT ABD/Pelvis - Normal appearance of liver, gallbladder wall thickening 01/09 - RUQ US showed cholelithiasis with out cholecystitis Hypercholesterolemia Noted in 01/2020 Not currently on statin Unclear as to why Will repeat lipid panel in am Hx of clinical blindness / Glaucoma Fall precautions GI ppx Protonix 40 mg PO daily DVT ppx SCDs only Attestations Medical Necessity Statement*: Will require over2 midnight stay in hospital for evaluation and treatment of urinary tract infection Time Spent in Patient Care: Greater than 35 minutes (>than 50% of time spent in counselling and/or direct pt care on unit). Coding Level of Care Code Acute Chief Cardiopulmonary Technologist for Camden Dacosta Diagnoses Urinary tract infection N39.0
[2021-01-11] MEDS: sodium chloride 0.9% 1,000 ML 75 ML IV (19:38)
[2021-01-12] VITALS (8 sets, daily range): BP systolic 126–160; BP diastolic 71–83; PULSE 68–86; RESP 16–18; TEMP 36.6–39; O2SAT 91–94
[2021-01-12] MEDS: morphine 4 mg/mL SDV 1 mL 2 MG IVP ×2 (05:05→10:38)
[2021-01-12 06:19] LABS: Basophils % 0.6 %; Hematocrit 41.2 % (37.0-47.0); Hemoglobin 13.7 g/dL (11.5-15.3); Lymphocytes # 1.1 10^3/uL (0.8-4.8); Lymphocytes % 31.2 %; Mean Corpuscular HGB Conc 33.3 g/dL (30.0-36.0); Mean Corpuscular Hemoglobin 29.7 pg (28.0-34.0); Mean Corpuscular Volume 89.2 fL (81-99); Mean Platelet Volume 13.1 fL (7.4-10.4); Monocytes # 0.2 10^3/uL (0.2-0.9); Monocytes % 6.1 %; Neutrophils % 61.3 %; Nucleated Red Blood Cells % 0 %; Platelet Count 52 10^3/cmm (130-400); Red Blood Count 4.62 10^6/uL (4.1-5.3); Red Cell Distribution Width 13.2 % (12.1-15.1); White Blood Count 3.6 10^3/uL (4.0-10.0)
[2021-01-12 06:54] LABS: Lactic Sepsis W/Reflex 1.8 mmol/L (0.5-2.2)
[2021-01-12 06:55] LABS: Alanine Aminotransferase 43 U/L (0-33); Albumin Level 3.1 g/dL (3.5-5.2); Alkaline Phosphatase 92 IU/L (35-105); Anion Gap 11.6 (5-19); Aspartate Amino Transferase 52 U/L (0-32); Blood Urea Nitrogen 15 mg/dL (8-23); Calcium 7.9 mg/dL (8.5-10.5); Carbon Dioxide 24 mmol/L (22-29); Chloride 100 mmol/L (98-107); Globulin 2.3 g/dL (1.3-4.6); Glucose 151 mg/dL (65-115); Magnesium 1.8 mg/dL (1.7-2.3); Osmolality Calculated 278 mOsm/kg (285-295); Potassium 3.6 mmol/L (3.5-5.1); Sodium 132 mmol/L (136-145); Total Bilirubin 0.2 mg/dL (0.15-1.2); Total Protein 5.4 g/dL (6.6-8.7)
[2021-01-12 07:01] LABS: Procalcitonin 0.62 ng/mL (0-0.5)
[2021-01-12 07:20] LABS: Slide Review Slide Review Perform
[2021-01-12] MEDS: sodium chloride 0.9% 1,000 ML 75 ML IV ×2 (09:59→23:06)
[2021-01-12] MEDS: pantoprazole DR 40 mg Tablet PO (10:00)
[2021-01-12] MEDS: cefTRIAXone 2,000 MG in sodium chloride 0.9% (plus) 50 ML 100 MG IV ×2 (10:41→23:07)
[2021-01-12] MEDS: acetaminophen 500 mg Tablet PO (15:09)
--- NOTE | 2021-01-12 16:51 | P.HP_ITS ---
Providers/Chief Complaint Admitting Physician: Carlos Daniels Primary Care Provider: Shara Jung DO Chief Complaint: fall, head and body pain History of Present Illness Ivania Graf is a 75 year old female Review of Systems 2 General: Reports: 10 or more systems reviewed and unremarkable except in HPI and below Medications/Allergies Home Medications Medication Instructions Recorded Confirmed Last Taken Type bimatoprost [Lumigan] 1 drp OPHTHALMIC (EYE) BID 01/11/21 01/11/21 01/10/21 History brimonidine [Alphagan P] 1 drp OPHTHALMIC (EYE) BID 01/11/21 01/11/21 01/10/21 History cephalexin 500 mg capsule 500 mg PO BID 7 Days #14 cap 01/11/21 01/11/21 Unknown Rx prednisolone acetate 1 drp OPHTHALMIC (EYE) QID 01/11/21 01/11/21 01/10/21 History Allergies Allergy/AdvReac Type Severity Reaction Status Date / Time Penicillins AdvReac Mild UNKNOWN Verified 01/11/21 09:32 PFSH Acute PFSH: Medical History (Updated 01/10/21 @ 15:01 by Shara Jung DO) Degenerative lumbar spinal stenosis Essential hypertension Optic neuritis Surgical History H/O knee surgery H/O tubal ligation History of right hip replacement Family History Other CAD (coronary artery disease) Hyperlipidemia Hypertension Stroke Social History Smoking and tobacco status: never smoked Alcohol intake: never Vitals/I&O/Wt Last Vital Signs Temp 102.1 F H 01/12/21 16:00 Pulse 83 01/12/21 16:00 Resp 18 01/12/21 16:00 BP 149/78 01/12/21 16:00 Pulse Ox 91 01/12/21 16:00 01/12/21 01/12/21 01/12/21 06:59 14:59 22:59 Intake Total 50 / 50 1170 / 1170 Output Total 300 / 300 Balance 50 / 50 870 / 870 Weight last 48 hrs Weight 66.678 kg Physical Exam Narrative: EXAM NARRATIVE: General- alert awake and oriented HEENT-grossly unremarkable CVS -sinus tachycardia Abdomen-soft nontender nondistended Extremities- no edema No focal weakness or sensory deficit Data : 01/12/21 06:06 01/12/21 06:06 Micro: Microbiology 01/11/21 10:12 Blood Culture - Preliminary Blood NEGATIVE TO DATE 01/11/21 11:53 Blood Culture - Preliminary Blood A&P Assessment and plan (1) Urinary tract infection: Status: Acute Sepsis suspected Urinary tract infection Tmax 103.2 on arrival HR 105, WBC 3.5 01/09 - >100 WBC, 2+ leukocyte - Urine and blood Culture preliminary - Negative 01/09 - > UA bacteria however neg for leuk.esterace or nitrates 01/11 - Blood culture x 2 drawn Continue Rocephin 2G IV q24hr Fall with subsequent Acute T12 fracture / mod-severe lumbar spinal stenosis Focal pain, MS bilateral LE - > 5/5, currently ambulating with out assistance, no lumbar rediculopathy, numbness or tingling. No evidence of retropulsuion to spine Concern given low platelets and acute trauma of bleeding in to fracture Neuro-checks q2x4 - > q4hr Will need stat MRI and likely transfer for spine surgery eval. No spine surgery available for consult at [facility] Fall precaution Pain control Ambulate with assistance. Thrombocytopenia Platelets 81 -> 48 Possibly due to sepsis Bleeding precautions No anti-plts or anticoagulation Repeat labs in am Transaminitis AST -> 74 ALT -> 54 Alp-> 115 Hepatitis panel negative. 01/09 - CT ABD/Pelvis - Normal appearance of liver, gallbladder wall thickening 01/09 - RUQ US showed cholelithiasis with out cholecystitis Hypercholesterolemia Noted in 01/2020 Not currently on statin Unclear as to why Will repeat lipid panel in am Hx of clinical blindness / Glaucoma Fall precautions GI ppx Protonix 40 mg PO daily DVT ppx SCDs only Coding Level of Care Code Acute Map Plotter for Chg Fwd Diagnoses Urinary tract infection N39.0
--- NOTE | 2021-01-12 16:52 | PM.PN ---
Subjective Subjective: Interval history: 75-year-old with a past medical history significant for hypertension, degenerative lumbar spinal Stenosis and clinical blindness was presented to the hospital with generalized weakness with fall. Stated she lost her balance after tripping over something. Landed on her right upper extremity. Denied head trauma or loss of conciseness. Noted to have fever, chills and body aches. Patient was recently seen in emergency room on 01/09/2021 with suprapubic cramping, dysuria, frequency and urgency. Patient was diagnosed with urinary tract infection and discharged On cephalexin which was electronically prescribed however not picked up by patient. Continued to have these symptoms in addition to fever and chills. Upon arrival to ER Today her laboratory workup showed a WBC of 3.5, hemoglobin of 15.2, hematocrit of 43.8 and a platelet count of 48.This was a decreased from 81 on most recent labs. No prior history of thrombocytopenia. Sodium 132, potassium 4.0, chloride 95, bicarb 22, BUN 15 and creatinine of 0.8. Calcium of 8 4. AST of 74, ALT of 54 and alkaline phosphatase of 155. Urinalysis today showed negative nitrites as well as negative for leukocyte esterase. 1+ bacteria. Prior urinalysis on 01/09 8 shown over 100 WBCs, 2+ leukocyte esterase. Influenza a/B, covered 19 antigen were negative. Covid-19 PCR was sent however pending. Imaging studies today showed chest x-ray which did not have any acute cardiopulmonary abnormalities.Head CT without contrast was performed which did not show any evidence of acute intracranial abnormality. CT of thoracic /lumbar spine without contrast showed acute T12 compression fracture with out any posterior retropulsion. Lumbar spine showed moderate to severe central, lateral recess and foramina stenosis. Patient stated she felt better, did not have any radicular pain. No loss of bowel or bladder. Patient vitals on arrival showed a BP of 138/79, HR of 105, RR of 20 and a temp of 103.2. Patient was started on IVF and Rocephin 2g IV daily. Patient was noted to have a fever of 102.1. Able to ambulate with assistance. Medications: Reviewed: Yes Vitals/I&O/Wt Last Vital Signs Temp 102.1 F H 01/12/21 16:00 Pulse 83 01/12/21 16:00 Resp 18 01/12/21 16:00 BP 149/78 01/12/21 16:00 Pulse Ox 91 01/12/21 16:00 01/12/21 01/12/21 01/12/21 06:59 14:59 22:59 Intake Total 50 / 50 1170 / 1170 Output Total 300 / 300 Balance 50 / 50 870 / 870 Weight last 48 hrs Weight 66.678 kg Data : 01/12/21 06:06 01/12/21 06:06 Micro: Microbiology 01/11/21 10:12 Blood Culture - Preliminary Blood NEGATIVE TO DATE 01/11/21 11:53 Blood Culture - Preliminary Blood A&P Assessment and plan (1) Urinary tract infection: Status: Acute Sepsis suspected Urinary tract infection Tmax 103.2 on arrival HR 105, WBC 3.5 Continued to have fevers 01/09 - >100 WBC, 2+ leukocyte - Urine and blood Culture preliminary - Negative 01/09 - > UA bacteria however neg for leuk.esterace or nitrates 01/11 - Blood culture x 2 - no growth today Continue Rocephin 2G IV q24hr Tylenol p.r.n. for fever Procalcitonin 0.62 Fall with subsequent Acute T12 fracture / mod-severe lumbar spinal stenosis Focal pain, MS bilateral LE - > 5/5, currently ambulating with out assistance, no lumbar rediculopathy, numbness or tingling. No evidence of retropulsuion to spine Concern given low platelets and acute trauma of bleeding in to fracture Neuro-checks q2x4 - > q4hr Will need stat MRI and likely transfer for spine surgery eval. No spine surgery available for consult at [facility] Fall precaution Pain control Ambulate with assistance. Discussed with PT no deficits Thrombocytopenia Platelets 81 -> 48 ->52 Possibly due to sepsis Bleeding precautions No anti-plts or anticoagulation Repeat labs in am Transaminitis AST -> 74 - 52 ALT -> 54 - 43 Alp-> 115 -92 Hepatitis panel negative. 01/09 - CT ABD/Pelvis - Normal appearance of liver, gallbladder wall thickening 01/09 - RUQ US showed cholelithiasis with out cholecystitis Hypercholesterolemia Noted in 01/2020 Not currently on statin Unclear as to why Will repeat lipid panel in am Hx of clinical blindness / Glaucoma Fall precautions GI ppx Protonix 40 mg PO daily DVT ppx SCDs only Attestations Medical Necessity Statement*: continue hospitalization for management of sepsis requiring IV antibiotics Time Spent in Patient Care: Greater than 35 minutes (>than 50% of time spent in counselling and/or direct pt care on unit). 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
[2021-01-13 04:00] VITALS: BP 146/81; PULSE 70; RESP 16; TEMP 36.8; O2SAT 93
[2021-01-13 08:00] VITALS: BP 172/90; PULSE 83; RESP 18; TEMP 37.2; O2SAT 92
[2021-01-13] MEDS: pantoprazole DR 40 mg Tablet PO (09:24)
[2021-01-13] MEDS: cefTRIAXone 2,000 MG in sodium chloride 0.9% (plus) 50 ML 100 MG IV ×2 (11:34→22:26)
[2021-01-13] MEDS: sodium chloride 0.9% 1,000 ML 75 ML IV (11:35)
[2021-01-13 12:00] VITALS: BP 145/72; PULSE 78; RESP 17; TEMP 37.1; O2SAT 93
--- NOTE | 2021-01-13 13:56 | PM.PN ---
Subjective Subjective: Interval history: 75-year-old with a past medical history significant for hypertension, degenerative lumbar spinal Stenosis and clinical blindness was presented to the hospital with generalized weakness with fall. Stated she lost her balance after tripping over something. Landed on her right upper extremity. Denied head trauma or loss of conciseness. Noted to have fever, chills and body aches. Patient was recently seen in emergency room on 01/09/2021 with suprapubic cramping, dysuria, frequency and urgency. Patient was diagnosed with urinary tract infection and discharged On cephalexin which was electronically prescribed however not picked up by patient. Continued to have these symptoms in addition to fever and chills. Upon arrival to ER Today her laboratory workup showed a WBC of 3.5, hemoglobin of 15.2, hematocrit of 43.8 and a platelet count of 48.This was a decreased from 81 on most recent labs. No prior history of thrombocytopenia. Sodium 132, potassium 4.0, chloride 95, bicarb 22, BUN 15 and creatinine of 0.8. Calcium of 8 4. AST of 74, ALT of 54 and alkaline phosphatase of 155. Urinalysis today showed negative nitrites as well as negative for leukocyte esterase. 1+ bacteria. Prior urinalysis on 01/09 8 shown over 100 WBCs, 2+ leukocyte esterase. Influenza a/B, covered 19 antigen were negative. Covid-19 PCR was sent however pending. Imaging studies today showed chest x-ray which did not have any acute cardiopulmonary abnormalities.Head CT without contrast was performed which did not show any evidence of acute intracranial abnormality. CT of thoracic /lumbar spine without contrast showed acute T12 compression fracture with out any posterior retropulsion. Lumbar spine showed moderate to severe central, lateral recess and foramina stenosis. Patient stated she felt better, did not have any radicular pain. No loss of bowel or bladder. Patient vitals on arrival showed a BP of 138/79, HR of 105, RR of 20 and a temp of 103.2. Patient was started on IVF and Rocephin 2g IV daily. Patient continued to have a fever of 102.1. blood cultures obtained on 01/09 remained negative for any growth however repeat blood culture on 01/11 showed 1/2 sets to be positive for coag-negative staph This was likely a contamination. Procalcitonin of 0.62. Able to ambulate with assistance. 01/13/2021 Noted to again have fever of 102 overnight. Otherwise she did not have any new complaints. No respiratory distress. No chest pain or abdominal pain. Also denies diarrhea. Medications: Reviewed: Yes Vitals/I&O/Wt Last Vital Signs Temp 98.8 F 01/13/21 12:00 Pulse 78 01/13/21 12:00 Resp 17 01/13/21 12:00 BP 145/72 01/13/21 12:00 Pulse Ox 93 01/13/21 12:00 01/12/21 01/13/21 01/13/21 22:59 06:59 14:59 Intake Total 360 / 1530 1033.75 / 2563.75 1346.25 / 1346.25 Output Total 1000 / 1300 1100 / 2400 Balance -640 / 230 -66.25 / 163.75 1346.25 / 1346.25 Physical Exam Narrative: EXAM NARRATIVE: EXAM NARRATIVE: General- alert awake and oriented HEENT-grossly unremarkable CVS -Normal sinus rhythm Abdomen-soft nontender nondistended Extremities- no edema No focal weakness or sensory deficit Data : 01/12/21 06:06 01/12/21 06:06 Micro: Microbiology 01/11/21 11:53 Blood Culture - Preliminary Blood Coagulase negativ staphylococc 01/11/21 10:12 Blood Culture - Preliminary Blood NEGATIVE TO DATE A&P Assessment and plan (1) Urinary tract infection: Status: Acute Sepsis suspected Urinary tract infection Tmax 103.2 on arrival HR 105, WBC 3.5 Continued to have fevers 01/09 - >100 WBC, 2+ leukocyte - Urine and blood Culture preliminary - Negative 01/09 - > UA bacteria however neg for leuk.esterace or nitrates - Blood culture x 2 - NGTD 01/11 - Blood culture x 2 - 2/4 positive for coagulase negative staph. 01/13 - Repeat Blood culture ordered. Start on Vancomycin pharmacy to dose given persistent fever Continue Rocephin 2G IV q24hr Tylenol p.r.n. for fever Procalcitonin 0.62 Repeat CBC in Am Fall with subsequent Acute T12 fracture / mod-severe lumbar spinal stenosis Focal pain, MS bilateral LE - > 5/5, currently ambulating with out assistance, no lumbar rediculopathy, numbness or tingling. No evidence of retropulsuion to spine Concern given low platelets and acute trauma of bleeding in to fracture Neuro-checks q2x4 - > q4hr Will need stat MRI and likely transfer for spine surgery eval. No spine surgery available for consult at [facility] Fall precaution Pain control Ambulate with assistance. Discussed with PT no deficits Can arrange for IR Kyphoplasty Thrombocytopenia Platelets 81 -> 48 ->52 Possibly due to sepsis Bleeding precautions No anti-plts or anticoagulation Repeat labs in am Transaminitis AST -> 74 - 52 ALT -> 54 - 43 Alp-> 115 -92 Hepatitis panel negative. 01/09 - CT ABD/Pelvis - Normal appearance of liver, gallbladder wall thickening 01/09 - RUQ US showed cholelithiasis with out cholecystitis Hypercholesterolemia Noted in 01/2020 Not currently on statin Unclear as to why Will repeat lipid panel in am Hx of clinical blindness / Glaucoma Fall precautions GI ppx Protonix 40 mg PO daily DVT ppx SCDs only Attestations Medical Necessity Statement*: Will require further hospitalization for management of fever, bacteremia requiring IV antibiotics Time Spent in Patient Care: Greater than 35 minutes (>than 50% of time spent in counselling and/or direct pt care on unit). 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
[2021-01-13] MEDS: vancomycin 1,000 MG in sodium chloride 0.9% 250 ML 250 MG IV (15:38)
[2021-01-13 16:00] VITALS: BP 181/88; PULSE 71; RESP 18; TEMP 36.9; O2SAT 97
[2021-01-13 19:37] VITALS: BP 174/79; PULSE 78; RESP 17; TEMP 37.2; O2SAT 94
[2021-01-13 20:01] VITALS: RESP 18
[2021-01-13] MEDS: morphine 4 mg/mL SDV 1 mL 2 MG IVP (20:01)
[2021-01-14] VITALS (7 sets, daily range): BP systolic 125–181; BP diastolic 73–89; PULSE 69–76; RESP 16–18; TEMP 36.9–37.2; O2SAT 91–92
[2021-01-14] MEDS: sodium chloride 0.9% 1,000 ML 75 ML IV (02:55)
[2021-01-14] MEDS: morphine 4 mg/mL SDV 1 mL 2 MG IVP (04:09)
[2021-01-14 06:26] LABS: Hematocrit 37.5 % (37.0-47.0); Hemoglobin 12.4 g/dL (11.5-15.3); Mean Corpuscular HGB Conc 33.1 g/dL (30.0-36.0); Mean Corpuscular Hemoglobin 29.2 pg (28.0-34.0); Mean Corpuscular Volume 88.4 fL (81-99); Mean Platelet Volume 12.2 fL (7.4-10.4); Platelet Count 92 10^3/cmm (130-400); Red Blood Count 4.24 10^6/uL (4.1-5.3); Red Cell Distribution Width 13.3 % (12.1-15.1)
[2021-01-14 06:47] LABS: Alanine Aminotransferase 37 U/L (0-33); Albumin Level 2.8 g/dL (3.5-5.2); Alkaline Phosphatase 75 IU/L (35-105); Anion Gap 13.3 (5-19); Aspartate Amino Transferase 33 U/L (0-32); Blood Urea Nitrogen 5 mg/dL (8-23); Calcium 7.7 mg/dL (8.5-10.5); Carbon Dioxide 25 mmol/L (22-29); Chloride 101 mmol/L (98-107); Chol HDL Ratio 6.15 mg/dL (0.0-4.40); Cholesterol 123 mg/dL (0-200); Globulin 2.4 g/dL (1.3-4.6); Glucose 130 mg/dL (65-115); HDL Cholesterol 20 mg/dL (60-100); LDL Cholesterol Calculated 58 mg/dL (50-129); Osmolality Calculated 281 mOsm/kg (285-295); Potassium 3.3 mmol/L (3.5-5.1); Sodium 136 mmol/L (136-145); Total Bilirubin 0.3 mg/dL (0.15-1.2); Total Protein 5.2 g/dL (6.6-8.7); Triglycerides 223 mg/dL (0-150)
[2021-01-14 06:52] LABS: Procalcitonin 0.17 ng/mL (0-0.5)
[2021-01-14 07:21] LABS: Slide Review Slide Review Perform
[2021-01-14 07:25] LABS: Absolute Segmented Neutrophil 1.8 10/cmm (1.6-7.1); Band Neutrophils Absolute 0.2 10^3/cmm (0.0-1.2); Basophils Absolute 0.1 10^3/cmm (0.0-0.2); Eosinophils 1 %; Lymphocytes 54 %; Lymphocytes Absolute 2.9 10^3/cmm (1.2-3.4); Monocytes Absolute 0.1 10^3/cmm (0.1-0.6); Segmented Neutrophils 35 %; Total Cells Counted 100 (0-100)
[2021-01-14 07:26] LABS: Absolute Neutrophil 1.9 10^3/cmm (1.4-6.5); Anisocytosis Trace; Giant Platelets Trace; Platelet Estimate Decreased (Normal); Poikilocytosis Trace
[2021-01-14] MEDS: pantoprazole DR 40 mg Tablet PO (09:18)
[2021-01-14] MEDS: cefTRIAXone 2,000 MG in sodium chloride 0.9% (plus) 50 ML 100 MG IV (11:25)
--- NOTE | 2021-01-14 11:43 | PC.SOCIAL ---
IMM Update Pg. 2 of IMM updated and reviewed with patient. Verbalized understanding. Copy provided. Initialed, dated, and timed in chart.
[2021-01-14] MEDS: vancomycin 1,000 MG in sodium chloride 0.9% 250 ML 250 MG IV (15:32)
--- NOTE | 2021-01-14 16:00 | CTR_ITS ---
PROCEDURE INFORMATION: Exam: CT Chest With Contrast; Diagnostic Exam date and time: 01/14/2021 4:00 PM Age: 75 years old Clinical indication: Constipation; Abdominal pain; Shortness of breath; Sternal or substernal pain; Prior surgery; Surgery type: Tubal, RT hip; Additional info: Fuo TECHNIQUE: Imaging protocol: Diagnostic computed tomography of the chest with contrast. Radiation optimization: All CT scans at this facility use at least one of these dose optimization techniques: automated exposure control; mA and/or kV adjustment per patient size (includes targeted exams where dose is matched to clinical indication); or iterative reconstruction. Contrast material: OMNI 300; Contrast volume: 95 ml; Contrast route: INTRAVENOUS (IV); COMPARISON: 1. CR XR chest 1V portable [id number] 01/11/2021 10:[address] abdomen pelvis w con* [id number] 01/09/2021 10:15:39 PM RADIATION DOSE METRICS: Total DLP (mGy-cm): 1291.21 FINDINGS: Lungs: 3 mm left upper lobe nodule, series 4, image 22. Right lower lobe calcified granulomas. Mild atelectasis in the lung bases and left upper lobe. Otherwise clear. Pleural spaces: Unremarkable. No pneumothorax. No pleural effusion. Heart: Unremarkable. No cardiomegaly. No pericardial effusion. Aorta: Unremarkable. No aortic aneurysm. Lymph nodes: Unremarkable. No enlarged lymph nodes. Bones/joints: Severe degenerative changes of the right shoulder. Newly acquired T12 compression fracture. Soft tissues: Unremarkable. IMPRESSION: 1. T12 compression fracture, new since 01/09/2021. 2. 3 mm left pulmonary nodule. For patients at low risk (minimal or absent history of smoking and of other known risk factors), no routine follow-up is indicated. For patients at high risk (history of smoking or of other known risk factors), consider optional CT Chest at 12 months. (Reference: Anastacia) References: Anastacia H, et al. Guidelines for Management of Incidental Pulmonary Nodules Detected on CT Images: From the Fleischner Society 2017. Radiology. 2017;284(1):228-243. PROCEDURE INFORMATION: Exam: CT Abdomen And Pelvis With Contrast Exam date and time: 01/14/2021 4:00 PM Age: 75 years old Clinical indication: Constipation; Abdominal pain; Shortness of breath; Sternal or substernal pain; Prior surgery; Surgery type: Tubal, RT hip; Additional info: Fuo TECHNIQUE: Imaging protocol: Computed tomography of the abdomen and pelvis with contrast. Radiation optimization: All CT scans at this facility use at least one of these dose optimization techniques: automated exposure control; mA and/or kV adjustment per patient size (includes targeted exams where dose is matched to clinical indication); or iterative reconstruction. Contrast material: OMNI 300; Contrast volume: 95 ml; Contrast route: INTRAVENOUS (IV); COMPARISON: 1. CR XR chest 1V portable [id number] 01/11/2021 10:[address] abdomen pelvis w con* [id number] 01/09/2021 10:15:39 PM RADIATION DOSE METRICS: Total DLP (mGy-cm): 1291.21 FINDINGS: Liver: Normal. No mass. Gallbladder and bile ducts: Normal. No calcified stones. No ductal dilation. Pancreas: Normal. No ductal dilation. Spleen: Normal. No splenomegaly. Adrenal glands: Normal. No mass. Kidneys and ureters: Fluid density cyst in the right kidney, Hounsfield units less than 20. No follow-up imaging is recommended. Kidneys are otherwise normal. Stomach and bowel: Unremarkable. No obstruction. No mucosal thickening. Appendix: The appendix is visualized and is normal. Intraperitoneal space: Unremarkable. No free air. No significant fluid collection. Vasculature: Atherosclerotic calcifications. No aneurysm. Lymph nodes: Unremarkable. No enlarged lymph nodes. Urinary bladder: Unremarkable as visualized. Reproductive: Unremarkable as visualized. Bones/joints: Right hip arthroplasty hardware. Chronic subluxation of L4 on L5. Stable sclerotic lesion in the left femoral head, most likely a bone island. Soft tissues: Unremarkable. CT/CT chest abd pel w con* IMPRESSION: 1. No acute abnormality identified in the abdomen or pelvis. COMMENTS: Consistent with the [employer]'s Incidental Findings Committee white paper (J Am Doug Radiol 2018): Any incidental renal lesion less than 1 cm or classified as too small to characterize, or any incidental cystic renal lesion characterized as simple-appearing, is likely benign. No follow-up imaging is recommended for these lesions per consensus recommendations based on imaging criteria. Radiation Dose CTDIVOL = (mGy): DLP = 1291.21~1291.21 (mGy-cm)
[2021-01-14 16:59] LABS: Quest SARS-CoV-2 RNA NOT DETECTED (NOT DETECTED)
[2021-01-14 17:35] LABS: Iron 50 ug/dL (37-145); Percent Saturation 25.7 % (20-50); Total Iron Binding Capacity 194 mcg/dl; Unsaturated Iron Binding 144 ug/dL (112-347)
[2021-01-14] MEDS: amlodipine 5 mg Tablet PO (17:37)
[2021-01-14] MEDS: docusate sodium 100 mg Capsule PO (17:37)
[2021-01-14 17:45] LABS: Thyroid Stimulating Hormone 4.21 uIU/mL (0.27-4.20)
--- NOTE | 2021-01-14 17:55 | PM.PN ---
Subjective Subjective: Interval history: Hospital course, labs appreciated. Patient has remained afebrile overnight. Last temperature on January 12 afternoon. Patient denies any nausea vomiting, headache. Medications: Reviewed: Yes Vitals/I&O/Wt Last Vital Signs Temp 98.9 F 01/14/21 15:16 Pulse 72 01/14/21 15:16 Resp 18 01/14/21 15:16 BP 175/89 01/14/21 15:16 Pulse Ox 92 01/14/21 15:16 01/14/21 01/14/21 01/14/21 06:59 14:59 22:59 Intake Total 1050 / 3366.25 410 / 410 1050 / 1460 Output Total 500 / 1300 1800 / 1800 Balance 550 / 2066.25 410 / 410 -750 / -340 Physical Exam Narrative: EXAM NARRATIVE: EXAM NARRATIVE: General- alert awake and oriented HEENT-grossly unremarkable CVS -Normal sinus rhythm Abdomen-soft nontender nondistended Extremities- no edema No focal weakness or sensory deficit Data : 01/14/21 06:03 01/14/21 06:03 Micro: Microbiology 01/13/21 14:26 Blood Culture - Preliminary Blood NEGATIVE TO DATE 01/13/21 14:20 Blood Culture - Preliminary Blood NEGATIVE TO DATE A&P Assessment and plan (1) Fever of unknown origin: Status: Acute (2) Hypertension: Status: Acute (3) Coag negative Staphylococcus bacteremia: Status: Acute (4) Closed T12 fracture: Status: Acute Additional A&P Information Coag negative staph bacteremia: Blood cultures from admission 2 out of 4 positive. Cannot rule out contamination. Repeat blood cultures have been negative. Afebrile for last 36 hours. As for now all the sepsis/fever work-up has come back negative except the blood culture we will continue to treat. Continue with vancomycin and ceftriaxone. Will await sensitivities and discontinue antibiotics accordingly. COVID-19 PCR negative. Remove isolation precautions. Check MRSA swab, procalcitonin. Will not send for viral panel as patient has been in hospital for few days now and is afebrile. Check CT chest and pelvis with contrast to rule out any infectious source. CT spine and x-ray shoulder and humerus and elbow negative for any source of collection or infection. Check echocardiogram to rule out infective endocarditis. Thrombocytopenia/transaminitis: Most likely secondary to sepsis. Cannot rule out tickborne disorder but patient given both. Will start patient on doxycycline. Acute T12 fracture post fall: Continue with physical therapy management. Pain control with tramadol 50 every 6 hourly. Hypertension: Goal blood pressure less than 140/90 mmHg. Start patient on amlodipine 10 mg daily. We will uptitrate medications as per blood pressure. Subclinical blindness. Protonix for PUD prophylaxis. SCD for DVT prophylaxis given thrombocytopenia. Regular diet. Attestations Medical Necessity Statement*: Patient was further hospitalization for management of coag negative staph bacteremia, T12 fracture Time Spent in Patient Care: Greater than 35 minutes (>than 50% of time spent in counselling and/or direct pt care on unit). 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
[2021-01-14] MEDS: iohexol 300 mg/mL 100 mL Btl IV (18:18)
[2021-01-14] MEDS: lisinopril 20 mg Tablet PO (18:49)
[2021-01-14 21:10] LABS: Free T4 Free Thyroxine 1.42 ng/dL (0.82-1.77); T3 Free 4.1 PG/ML (2.0-4.4)
[2021-01-15] VITALS: BP 178/82; PULSE 80; RESP 16; TEMP 37.4; O2SAT 91
[2021-01-15 04:00] VITALS: BP 190/82; PULSE 84; RESP 17; TEMP 37.2; O2SAT 92
--- NOTE | 2021-01-15 05:08 | PC.NURSE ---
Patients blood pressure has been elevated tonight. Doc notified and advised to give Amalodipine early.
[2021-01-15] MEDS: TRAMadol 50 mg Tablet PO ×2 (05:11→11:55)
[2021-01-15] MEDS: amlodipine 5 mg Tablet PO (05:12)
--- NOTE | 2021-01-15 06:00 | USCV_ITS ---
Ivania Graf Age: 75 Gender: F : 1945 Exam Date: 01/15/2021 05:25 Ordering Phys: Surjit Gerard MD Technologist: NANCY [place]am [place] [facility] [place]ication: H/O PULM HTN AND DD BP: 190 / 82 HR: 82 Rhythm: Sinus Technical Quality: Adequate MEASUREMENTS (Male / Female) Normal Values 2D ECHO LV Diastolic Diameter PLAX 2.9 cm 4.2 - 5.9 / 3.9 - 5.3 cm LV Systolic Diameter PLAX 1.9 cm LV Chamber Size 2.8 cm IVS Diastolic Thickness 1.6 cm 0.6 - 1.0 / 0.6 - 0.9 cm IVS Systolic Thickness 1.9 cm LVPW Diastolic Thickness 1.6 cm 0.6 - 1.0 / 0.6 - 0.9 cm LVPW Systolic Thickness 1.8 cm RV Chamber Size 2.0 cm LVOT Diameter 2.1 cm LV Ejection Fraction 2D Teich 67.3 % LV Ejection Fraction MOD 2C 75.2 % LV Ejection Fraction 2C AL 75.3 % LA Diameter 2.8 cm LA Width 2.7 cm LA Height 4.4 cm RA Width 2.9 cm RA Height 3.6 cm Aorta at Sinotubular Diameter 2.7 cm M-MODE LV Diastolic Diameter MM 4.4 cm 4.2 - 5.9 / 3.9 - 5.3 cm LV Systolic Diameter MM 2.4 cm LV Ejection Fraction MM Teich 75.7 % IVS Diastolic Thickness MM 1.0 cm 0.6 - 1.0 / 0.6 - 0.9 cm IVS Systolic Thickness MM 1.3 cm LVPW Diastolic Thickness MM 1.0 cm 0.6 - 1.0 / 0.6 - 0.9 cm LVPW Systolic Thickness MM 1.7 cm Aortic Annulus Diameter 3.2 cm LA Ao Ratio MM 0.9 MV E Point Septal Separation 0.6 cm DOPPLER AV Peak Velocity 141.0 cm/s LVOT Peak Velocity 113.0 cm/s AV Area Cont Eq vti 3.2 cm squared AV Area Cont Eq pk 2.7 cm squared MV Area PHT 2.8 cm squared Mitral E to A Ratio 0.7 MV E' Velocity 51.0 cm/s Mitral E to MV E' Ratio 19.3 Mitral E to LV E' Lateral Ratio 20.1 Mitral E to LV E' Septal Ratio 18.6 TR Peak Velocity 119.7 cm/s TR Peak Gradient 5.7 mmHg TR Mean Velocity 96.6 cm/s TR Mean Gradient 4.0 mmHg TR Velocity Time Integral 31.1 cm TV Peak E Velocity 73.0 cm/s Right Atrial Pressure 3.0 mmHg Pulmonary Artery Systolic Pressu 8.7 mmHg PV Peak Velocity 76.0 cm/s RV Acceleration Time 0.1 s RV Ejection Time 0.4 s RV AcT/ET 0.2 FINDINGS Left Ventricle Normal left ventricular size, systolic function with no regional wall motion abnormalities. Left ventricular ejection fraction is estimated at 70 %. Grade I diastolic dysfunction (abnormal relaxation filling pattern), normal to mildly elevated filling pressures. Right Ventricle Normal right ventricular size and systolic function, RVSP 10 mmHg. Right Atrium Normal right atrial size. Right atrial pressure estimated at 3 mmHg. Left Atrium Upper normal left atrial size. Mitral Valve Mildly thickened mitral valve. No mitral valve stenosis. No significant mitral valve regurgitation. Aortic Valve Aortic valve not well visualized. No aortic valve stenosis. No aortic valve regurgitation. Tricuspid Valve Structurally normal tricuspid valve. Pulmonic Valve Pulmonic valve not well visualized. No pulmonary valve stenosis. Pericardium No pericardial effusion. Aorta Normal-sized aortic root. Normal-sized inferior vena cava. CONCLUSIONS 1. Normal left ventricular size, systolic function with no regional wall motion abnormalities. Left ventricular ejection fraction is estimated at 70 %. Grade I diastolic dysfunction (abnormal relaxation filling pattern), normal to mildly elevated filling pressures. 2. Normal right ventricular size and systolic function. 3. Normal pulmonary artery pressure. 4. No significant valvular normality. 5. No significant change when compared to previous echocardiogram dated 03/10/2017. Maricruz Thakkar MD (Electronically Signed) Final Date: 15 January 2021 11:33 S
[2021-01-15 06:55] LABS: Basophils # 0.1 10^3/uL (0.0-0.1); Basophils % 1.1 %; Eosinophils # 0.1 10^3/uL (0.0-0.8); Eosinophils % 1.5 %; Hemoglobin 14.2 g/dL (11.5-15.3); Lymphocytes # 3.2 10^3/uL (0.8-4.8); Lymphocytes % 48.2 %; Mean Corpuscular HGB Conc 33.8 g/dL (30.0-36.0); Mean Corpuscular Hemoglobin 29.4 pg (28.0-34.0); Mean Platelet Volume 11.8 fL (7.4-10.4); Monocytes # 0.4 10^3/uL (0.2-0.9); Monocytes % 5.8 %; Neutrophils # 2.78 10^3/uL (1.8-7.7); Neutrophils % 42.6 %; Nucleated Red Blood Cells % 0 %; Platelet Count 152 10^3/cmm (130-400); Red Blood Count 4.83 10^6/uL (4.1-5.3); White Blood Count 6.5 10^3/uL (4.0-10.0)
[2021-01-15 07:07] LABS: Alanine Aminotransferase 49 U/L (0-33); Albumin Level 3.4 g/dL (3.5-5.2); Alkaline Phosphatase 97 IU/L (35-105); Anion Gap 15.5 (5-19); Aspartate Amino Transferase 42 U/L (0-32); Blood Urea Nitrogen 5 mg/dL (8-23); Calcium 8.4 mg/dL (8.5-10.5); Carbon Dioxide 27 mmol/L (22-29); Chloride 96 mmol/L (98-107); Globulin 2.7 g/dL (1.3-4.6); Glucose 105 mg/dL (65-115); Osmolality Calculated 278 mOsm/kg (285-295); Potassium 3.5 mmol/L (3.5-5.1); Sodium 135 mmol/L (136-145); Total Bilirubin 0.6 mg/dL (0.15-1.2); Total Protein 6.1 g/dL (6.6-8.7)
[2021-01-15 07:23] LABS: Estmated Average Glucose 131; Hemoglobin A1C 6.2 % (4.0-6.0)
[2021-01-15 07:36] LABS: Slide Review Slide Review Perform
[2021-01-15 08:00] VITALS: BP 151/85; PULSE 86; RESP 14; TEMP 37; O2SAT 90
[2021-01-15] MEDS: cefTRIAXone 1,000 MG in sodium chloride 0.9% (plus) 50 ML 100 MG IV (08:48)
[2021-01-15] MEDS: doxycycline 100 mg Tablet PO (08:48)
[2021-01-15] MEDS: docusate sodium 100 mg Capsule PO (08:48)
[2021-01-15] MEDS: pantoprazole DR 40 mg Tablet PO (08:48)
--- NOTE | 2021-01-15 08:58 | PC.NURSE ---
stool was black
[2021-01-15 12:00] VITALS: BP 160/91; PULSE 90; RESP 16; TEMP 37.3; O2SAT 91
--- NOTE | 2021-01-15 12:19 | PM.DCS ---
Discharge Providers Date of Admission: 01/11/21 15:16 Date of Discharge: January 15, 2021 Attending Provider at Admission: Carlos Daniels Attending Provider at Discharge: Surjit Gerard MD Primary Care Provider: Shara Jung DO Diagnoses at Discharge Discharge Diagnosis (1) Fever of unknown origin: Status: Acute (2) Hypertension: Status: Acute (3) Coag negative Staphylococcus bacteremia: Status: Acute (4) Closed T12 fracture: Status: Acute Reason for Visit Reason for Visit: fall, head and body pain Hospital Course Hospital Course 75-year-old with a past medical history significant for hypertension, degenerative lumbar spinal Stenosis and clinical blindness was presented to the hospital with generalized weakness with fall. Stated she lost her balance after tripping over something. Landed on her right upper extremity. Denied head trauma or loss of conciseness. Noted to have fever, chills and body aches. Patient was recently seen in emergency room on 01/09/2021 with suprapubic cramping, dysuria, frequency and urgency. Patient was diagnosed with urinary tract infection and discharged On cephalexin which was electronically prescribed however not picked up by patient. Continued to have these symptoms in addition to fever and chills. Upon arrival to ER Today her laboratory workup showed a WBC of 3.5, hemoglobin of 15.2, hematocrit of 43.8 and a platelet count of 48.This was a decreased from 81 on most recent labs. No prior history of thrombocytopenia. Sodium 132, potassium 4.0, chloride 95, bicarb 22, BUN 15 and creatinine of 0.8. Calcium of 8 4. AST of 74, ALT of 54 and alkaline phosphatase of 155. Urinalysis today showed negative nitrites as well as negative for leukocyte esterase. 1+ bacteria. Prior urinalysis on 01/09 8 shown over 100 WBCs, 2+ leukocyte esterase. Influenza a/B, covered 19 antigen were negative. Covid-19 PCR was sent however pending. Imaging studies today showed chest x-ray which did not have any acute cardiopulmonary abnormalities.Head CT without contrast was performed which did not show any evidence of acute intracranial abnormality. CT of thoracic /lumbar spine without contrast showed acute T12 compression fracture with out any posterior retropulsion. Lumbar spine showed moderate to severe central, lateral recess and foramina stenosis. Patient stated she felt better, did not have any radicular pain. No loss of bowel or bladder. Patient was to the hospital for management of sepsis from unknown origin. She started on broad-spectrum antibiotics. Multiple images secured including CT lumbar spine, CT chest abdomen pelvis, echocardiogram were negative for any signs of infection. Blood culture from day of admission had 2 out of 4 bottles positive for coag negative staph. Patient has remained afebrile for the last 72 hours. By the day of discharge her thrombocytopenia had resolved. She did well with physical therapy. She has been discharged in hemodynamically stable condition with advice to be on doxycycline and Levaquin for 7 more days. She is to follow-up with her primary care provider within the next 1 week. She is to follow-up with Dr. Hernandez from orthopedic surgery for T12 fracture. She is to continue doing physical therapy at home. Home health has been arranged. Because of history of clinical blindness and T12 fracture patient would need a bedside commode and a walker. Physical Exam Narrative: EXAM NARRATIVE: EXAM NARRATIVE: General- alert awake and oriented HEENT-grossly unremarkable CVS -Normal sinus rhythm Abdomen-soft nontender nondistended Extremities- no edema No focal weakness or sensory deficit Discharge Data Data Completed and Pending: Completed Studies During Hospitalization Category Date Time Status CT chest abd pel w con* Routine Cat Scan 01/14/21 16:[address] head wo con* 7 [id number] Stat Cat Scan 01/11/21 10:[address] lumbar spine w o con* [id number] Stat Cat Scan 01/11/21 10:[address] thoracic spin wo con* [id number] Stat Cat Scan 01/11/21 10:31 Completed XR chest 1V piter ble [id number] Stat Exams 01/11/21 10:11 Completed XR elbow RT min 3 V* [id number] Stat Exams 01/11/21 10:24 Completed XR humerus RT 730 60 Stat Exams 01/11/21 10:24 Completed XR shoulder RT mi n 2V* [id number] Stat Exams 01/11/21 10:24 Completed Pending at discharge Category Date Time Status Blood Culture Sta t Lab 01/11/21 11:53 Results Blood Culture Sta t Lab 01/13/21 14:26 Results COVID [Coronaviru s Test Green Count y] Routine Lab 01/14/21 16:50 Received MRSA by PCR Routi ne Lab 01/14/21 16:50 Received Vancomycin Trough Timed Lab 01/16/21 14:30 Ordered CV echo complete* [id number] Routine Ultrasound 01/15/21 06:00 Taken Labs from last 24 hours 01/15/21 01/15/21 01/15/21 06:05 06:05 06:05 WBC 6.5 RBC 4.83 Hgb 14.2 Hct 42.0 MCV 87.0 MCH 29.4 MCHC 33.8 RDW 13.0 Plt Count 152 MPV 11.8 H Neut % (Auto) 42.6 Lymph % (Auto) 48.2 Hendricks % (Auto) 5.8 Eos % (Auto) 1.5 Baso % (Auto) 1.1 Neut # (Auto) 2.78 Lymph # (Auto) 3.2 Hendricks # (Auto) 0.4 Eos # (Auto) 0.1 Baso # (Auto) 0.1 Nucleated RBC % (a uto) 0 Nucleated RBCs # 0.0 Sodium 135 L Potassium 3.5 Chloride 96 L Carbon Dioxide 27 Anion Gap 15.5 BUN 5 L Creatinine 0.4 L GFR Calculation Not Reportable Glucose 105 Estimat Average Gl ucose 131 Hemoglobin A1c 6.2 H Calculated Osmolal ity 278 L Calcium 8.4 L Iron TIBC % Saturation Unsat Iron Binding Total Bilirubin 0.6 AST 42 H ALT 49 H Alkaline Phosphata se 97 Total Protein 6.1 L Albumin 3.4 L Globulin 2.7 TSH Free T4 Free T3 Nasal/Oral COVID-1 9 PCR SARS-CoV-2 RNA (RT -PCR) 01/14/21 01/14/21 01/14/21 16:50 06:03 06:03 WBC RBC Hgb Hct MCV MCH MCHC RDW Plt Count MPV Neut % (Auto) Lymph % (Auto) [place] % (Auto) Eos % (Auto) Baso % (Auto) Neut # (Auto) Lymph # (Auto) [place] # (Auto) Eos # (Auto) Baso # (Auto) Nucleated RBC % (a uto) Nucleated RBCs # Sodium Potassium Chloride Carbon Dioxide Anion Gap BUN Creatinine GFR Calculation Glucose Estimat Average Gl ucose Hemoglobin A1c Calculated Osmolal ity Calcium Iron TIBC % Saturation Unsat Iron Binding Total Bilirubin AST ALT Alkaline Phosphata se Total Protein Albumin Globulin TSH 4.21 H Free T4 1.42 Free T3 4.1 Nasal/Oral COVID-1 9 PCR Pending SARS-CoV-2 RNA (RT -PCR) 01/14/21 01/11/21 06:03 18:16 WBC RBC Hgb Hct MCV MCH MCHC RDW Plt Count MPV Neut % (Auto) Lymph % (Auto) [place] % (Auto) Eos % (Auto) Baso % (Auto) Neut # (Auto) Lymph # (Auto) [place] # (Auto) Eos # (Auto) Baso # (Auto) Nucleated RBC % (a uto) Nucleated RBCs # Sodium Potassium Chloride Carbon Dioxide Anion Gap BUN Creatinine GFR Calculation Glucose Estimat Average Gl ucose Hemoglobin A1c Calculated Osmolal ity Calcium Iron 50 TIBC 194 % Saturation 25.7 Unsat Iron Binding 144 Total Bilirubin AST ALT Alkaline Phosphata se Total Protein Albumin Globulin TSH Free T4 Free T3 Nasal/Oral COVID-1 9 PCR SARS-CoV-2 RNA (RT -PCR) Not detected Addt'l Data from Hospital Stay: Laboratory Results WBC 6.5 10^3/uL (4.0- 10.0) 01/15/21 06:05 RBC 4.83 10^6/uL (4.1 -5.3) 01/15/21 06:05 Hgb 14.2 g/dL (11.5-1 5.3) 01/15/21 06:05 Hct 42.0 % (37.0-47.0 ) 01/15/21 06:05 MCV 87.0 fL (81-99) 01/15/21 06:05 MCH 29.4 pg (28.0-34. 0) 01/15/21 06:05 MCHC 33.8 g/dL (30.0-3 6.0) 01/15/21 06:05 RDW 13.0 % (12.1-15.1 ) 01/15/21 06:05 Plt Count 152 10^3/cmm (130 -400) 01/15/21 06:05 MPV 11.8 fL (7.4-10.4 ) H 01/15/21 06:05 Neut % (Auto) 42.6 % 01/15/21 06:05 Lymph % (Auto) 48.2 % 01/15/21 06:05 [place] % (Auto) 5.8 % 01/15/21 06:05 Eos % (Auto) 1.5 % 01/15/21 06:05 Baso % (Auto) 1.1 % 01/15/21 06:05 Neut # (Auto) 2.78 10^3/uL (1.8 -7.7) 01/15/21 06:05 Lymph # (Auto) 3.2 10^3/uL (0.8- 4.8) 01/15/21 06:05 [place] # (Auto) 0.4 10^3/uL (0.2- 0.9) 01/15/21 06:05 Eos # (Auto) 0.1 10^3/uL (0.0- 0.8) 01/15/21 06:05 Baso # (Auto) 0.1 10^3/uL (0.0- 0.1) 01/15/21 06:05 Nucleated RBC % (a uto) 0 % 01/15/21 06:05 Total Counted 100 (0-100) 01/14/21 06:03 Atypical Lymphs % 4.0 % (0-5) 01/14/21 06:03 Absolute Neutrophi ls 1.9 10^3/cmm (1.4 -6.5) 01/14/21 06:03 Segmented Neutroph ils 35 % 01/14/21 06:03 Abs Segm Neuts (Ma n) 1.8 10/cmm (1.6-7 .1) 01/14/21 06:03 Band Neutrophils 3.0 % 01/14/21 06:03 Abs Band Neuts (Ma n) 0.2 10^3/cmm (0.0 -1.2) 01/14/21 06:03 Absolute Lymphocyt es 2.9 10^3/cmm (1.2 -3.4) 01/14/21 06:03 Lymphocytes (Manua l) 54 % 01/14/21 06:03 Monocytes (Manual) 2.0 % 01/14/21 06:03 Absolute Monocytes 0.1 10^3/cmm (0.1 -0.6) 01/14/21 06:03 Eosinophils (Manua l) 1 % 01/14/21 06:03 Absolute Eosinophi ls 0.0 10^3/cmm (0.0 -0.7) 01/14/21 06:03 Basophils (Manual) 1.0 % 01/14/21 06:03 Absolute Basophils 0.1 10^3/cmm (0.0 -0.2) 01/14/21 06:03 Nucleated RBCs # 0.0 /100WBC 01/15/21 06:05 Platelet Estimate Decreased (Priscilla l) L 01/14/21 06:03 Giant Platelets Trace 01/14/21 06:03 Poikilocytosis Trace 01/14/21 06:03 Anisocytosis Trace 01/14/21 06:03 Sodium 135 mmol/L (136-1 45) L 01/15/21 06:05 Potassium 3.5 mmol/L (3.5-5 .1) 01/15/21 06:05 Chloride 96 mmol/L (98-107 ) L 01/15/21 06:05 Carbon Dioxide 27 mmol/L (22-29) 01/15/21 06:05 Anion Gap 15.5 (5-19) 01/15/21 06:05 BUN 5 mg/dL (8-23) L 01/15/21 06:05 Creatinine 0.4 mg/dL (0.5-0. 9) L 01/15/21 06:05 GFR Calculation Not Reportable 01/15/21 06:05 Glucose 105 mg/dL (65-115 ) 01/15/21 06:05 Estimat Average Gl ucose 131 01/15/21 06:05 Hemoglobin A1c 6.2 % (4.0-6.0) H 01/15/21 06:05 Calculated Osmolal ity 278 mOsm/kg (285- 295) L 01/15/21 06:05 Lactic Acid 1.8 mmol/L (0.5-2 .2) 01/12/21 06:06 Calcium 8.4 mg/dL (8.5-10 .5) L 01/15/21 06:05 Magnesium 1.8 mg/dL (1.7-2. 3) 01/12/21 06:06 Iron 50 ug/dL (37-145) 01/14/21 06:03 TIBC 194 mcg/dl 01/14/21 06:03 % Saturation 25.7 % (20-50) 01/14/21 06:03 Unsat Iron Binding 144 ug/dL (112-34 7) 01/14/21 06:03 Total Bilirubin 0.6 mg/dL (0.15-1 .2) 01/15/21 06:05 AST 42 U/L (0-32) H 01/15/21 06:05 ALT 49 U/L (0-33) H 01/15/21 06:05 Alkaline Phosphata se 97 IU/L (35-105) 01/15/21 06:05 Creatine Kinase 59 U/L (26-192) 01/11/21 10:12 Total Protein 6.1 g/dL (6.6-8.7 ) L 01/15/21 06:05 Albumin 3.4 g/dL (3.5-5.2 ) L 01/15/21 06:05 Globulin 2.7 g/dL (1.3-4.6 ) 01/15/21 06:05 Triglycerides 223 mg/dL (0-150) H 01/14/21 06:03 Cholesterol 123 mg/dL (0-200) 01/14/21 06:03 LDL Cholesterol, C alc 58 mg/dL (50-129) 01/14/21 06:03 HDL Cholesterol 20 mg/dL (60-100) L 01/14/21 06:03 LDL/HDL Ratio 2.90 RATIO (0.00- 3.22) 01/14/21 06:03 Cholesterol/HDL Ra pérez 6.15 mg/dL (0.0-4 .40) H 01/14/21 06:03 Lipase 20 U/L (13-60) 01/11/21 10:12 Procalcitonin 0.17 ng/mL (0-0.5 ) 01/14/21 06:03 TSH 4.21 uIU/mL (0.27 -4.20) H 01/14/21 06:03 Free T4 1.42 ng/dL (0.82- 1.77) 01/14/21 06:03 Free T3 4.1 PG/ML (2.0-4. 4) 01/14/21 06:03 Urine Color Yellow (Yellow) 01/11/21 12:42 Urine Appearance Hazy (CLEAR) A 01/11/21 12:42 Urine pH 5 (5-7) 01/11/21 12:42 Ur Specific Gravit y 1.020 (1.005-1.0 30) 01/11/21 12:42 Urine Protein Neg (Negative) 01/11/21 12:42 Urine Glucose (UA) Norm (Normal) 01/11/21 12:42 Urine Ketones 1+ (Negative) H 01/11/21 12:42 Urine Blood Neg (Negative) 01/11/21 12:42 Urine Nitrate Negative (Negati ve) 01/11/21 12:42 Urine Bilirubin Neg (Negative) 01/11/21 12:42 Urine Urobilinogen Norm mg/dL (Negat consuelo) 01/11/21 12:42 Ur Leukocyte Kalee ase Negative (Negati ve) 01/11/21 12:42 Urine RBC 0-4 /hpf (0-2) H 01/11/21 12:42 Urine WBC None /hpf (0-5) 01/11/21 12:42 Ur Squamous Epith Cells 5-10 /hpf (0-5) H 01/11/21 12:42 Amorphous Sediment Not Reportable 01/11/21 12:42 Urine Bacteria 1+ /hpf (NONE) H 01/11/21 12:42 Urine Mucus 1+ /hpf 01/11/21 12:42 Influenza Type A A g Negative (Negati ve) 01/11/21 13:45 Influenza Type B A g Negative (Negati ve) 01/11/21 13:45 SARS-CoV-2 RNA (RT -PCR) Not detected (NO T DETECTED) 01/11/21 18:16 SARS-CoV-2 Ag (Rap id) Negative (Negati ve) 01/11/21 13:45 Impressions Chest X-Ray 01/11/21 10:11 IMPRESSION: Stable chest with no acute cardiopulmonary disease. Head CT 01/11/21 10:11 IMPRESSION: 1. No acute intracranial hemorrhage or edema. 2. No skull fracture. 3. Mild atrophy with moderate to severe chronic microvascular ischemic disease. Elbow X-Ray 01/11/21 10:24 IMPRESSION: Normal RIGHT elbow. Humerus X-Ray 01/11/21 10:24 IMPRESSION: No RIGHT humeral fracture identified. Shoulder X-Ray 01/11/21 10:24 Impression: 1. 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 2. Negative for new fracture. Lumbar Spine CT 01/11/21 10:31 IMPRESSION: 1. No acute lumbar spine fracture. 2. Moderate to severe central, lateral recess and foraminal stenosis at L4-5. 3. Grade 1 spondylolisthesis of L4. 4. Mild central with moderate bilateral subarticular and foraminal stenosis at L5-S1. Thoracic Spine CT 01/11/21 10:31 IMPRESSION: 1. Acute T12, 10% vertebral body compression fracture with vertical and horizontal components. No posterior retropulsion. 2. Increase in thoracic kyphosis with disc space narrowings through the central thoracic spine. Chest/Abdomen/Pelvis CT 01/14/21 16:00 IMPRESSION: 1. No acute abnormality identified in the abdomen or pelvis. COMMENTS: Consistent with the [employer]'s Incidental Findings Committee white paper (J Am Doug Radiol 2018): Any incidental renal lesion less than 1 cm or classified as too small to characterize, or any incidental cystic renal lesion characterized as simple-appearing, is likely benign. No follow-up imaging is recommended for these lesions per consensus recommendations based on imaging criteria. Radiation Dose CTDIVOL = (mGy): DLP = 1291.21~1291.21 (mGy-cm) Microbiology 01/13/21 14:26 Blood Blood Culture - Preliminary NEGATIVE TO DATE 01/13/21 14:20 Blood Blood Culture - Preliminary NEGATIVE TO DATE 01/11/21 11:53 Blood Blood Culture - Preliminary Coagulase negativ staphylococc 01/11/21 10:12 Blood Blood Culture - Preliminary NEGATIVE TO DATE Vitals: Last Vital Signs Temp 98.6 F 01/15/21 08:00 Pulse 86 01/15/21 08:00 Resp 14 01/15/21 08:00 BP 151/85 01/15/21 08:00 Pulse Ox 90 01/15/21 08:00 Discharge Plan Discharge Patient Disposition: Home Condition: Stable Prescriptions: New lisinopril 20 mg Tablet 20 mg PO DAILY 30 Days Qty: 30 RF: 0 amlodipine 5 mg Tablet 10 mg PO DAILY 30 Days Qty: 60 RF: 0 doxycycline monohydrate 100 mg Tablet 100 mg PO BID 9 Days Qty: 18 RF: 0 pantoprazole 40 mg Tablet,Delayed Release (Dr/Ec) 40 mg PO DAILY 14 Days Qty: 14 RF: 0 tramadol 50 mg Tablet 50 mg PO Q8H PRN (Reason: Moderate Pain) Qty: 15 RF: 0 levofloxacin 500 mg tablet 500 mg PO DAILY 7 Days Qty: 7 RF: 0 Continued prednisolone acetate 1 % drops,suspension 1 drp ophthalmic (eye) QID RF: 0 Alphagan P 0.1 % drops 1 drp ophthalmic (eye) BID RF: 0 Lumigan 0.01 % drops 1 drp ophthalmic (eye) BID RF: 0 Discontinued cephalexin 500 mg capsule 500 mg PO BID 7 Days Qty: 14 RF: 0 Discharge Orders: Discharge Order (Routine); Ordered 01/15/21 Ordered By: Surjit Gerard Other Ambulatory Orders: DME: [employer] (Order) Location: None Selected Ordered By: Carlos Daniels DME: Walker (Order) Location: None Selected Ordered By: Carlos Daniels Referrals: [email or web address]- Cathie Denney [Other] (Please call Cathie at the [email or web address] once you return home to see if you qualify for Meals on Wheels. ) [facility] [Outside] ([facility] has accepted for but will not be able to see you until Friday January 22, 2021.) Junaid Hernandez DO [Physician] - 7-10 days (T12 fracture) Shara Jung DO [Primary Care Provider] - 7-10 days Discharge Diet: Cardiac Discharge Activity: Resume usual activity Patient Instructions: Opioid Safety Activity Restrictions/Additional Instructions: Please follow-up with your primary care provider within next 1 week. You will be on doxycycline and Levaquin which are the antibiotics for next 9 days. Discharge Attestations Time Spent in Discharge Care*: greater than 30 min Specific Discharge Activities: educating patient, discussing with pcp/other providers, discussing with case making machine operator/social workers/dc planners, documenting/other paperwork and evaluating patient/reviewing data Status at Discharge: Cognitive status at discharge: cognitively intact, Behavioral status at discharge: cooperative, Functional status at discharge: uses cane/walker Overall status at discharge: patient is back to baseline Quality Metrics Clinical Quality Measures During this hospital stay, did patient experience: None Coding Level of Care Code Acute Chg FW DC note Diagnoses Fever of unknown origin R50.9 Hypertension I10 Coag negative Staphylococcus bacteremia R78.81; B95.7 Closed T12 fracture S22.880R
[2021-01-15 15:24] VITALS: BP 160/91; PULSE 90; RESP 16; TEMP 37.3; O2SAT 91
[2021-01-16 06:23] LABS: Coronavirus Test Green County Not Detected
== END 2021-01-15 15:24 | disposition home or self-care (01) | DRG 872 ==
LOC: ER 15:26 → MEDSURG 16:37
PROVIDERS: Admitting Provider Hospitalist; Emergency Provider Family Medicine; PCP Family Medicine; Visit Provider Student in an Organized Health Care Education/Training Program
DX: A41.9 Sepsis, unspecified organism (principal); S22.080A Wedge compression fracture of T11-T12 vertebra, initial encounter for closed fracture; N39.0 Urinary tract infection, site not specified; W01.0XXA Fall on same level from slipping, tripping and stumbling without subsequent striking against object, initial encounter; I10 Essential (primary) hypertension; M48.061 Spinal stenosis, lumbar region without neurogenic claudication; H40.9 Unspecified glaucoma; Z87.440 Personal history of urinary (tract) infections; D69.6 Thrombocytopenia, unspecified; E78.00 Pure hypercholesterolemia, unspecified; B95.8 Unspecified staphylococcus as the cause of diseases classified elsewhere; H54.3 Unqualified visual loss, both eyes; Z96.641 Presence of right artificial hip joint
CPT/HCPCS: 36415; 70450; 71045; 71260; 72128; 72131; 73030; 73060; 73080; 74177; 76705; 80053; 80061; 80074; 81001; 82550; 83036; 83540; 83550; 83605; 83690; 83735; 84145; 84439; 84443; 84481; 84703; 85007; 85025; 87040; 87086; 87205; 87426; 87635; 87641; 87804; 93005; 93306; 96365; 96375; 97110; 97116; 97162; 97530; 99284; 99285; J0696; J2270; J3370; J7030; J7050; Q9967

== ENCOUNTER 2021-01-30 02:08 | Emergency (ER) | payer MEDICARE, OTHER, SELFPAY ==
[2021-01-30 02:15] VITALS: BP 204/100; PULSE 90; RESP 16; TEMP 36.4; O2SAT 95; BMI 27.7
[2021-01-30] MEDS: ondansetron 2 mg/ML SDV 2 mL 4 MG IVP (02:52)
[2021-01-30] MEDS: HYDROmorphone 1 mg/mL INJ 1 mL 0.5 MG IVP (02:52)
[2021-01-30 02:53] LABS: Basophils # 0.1 10^3/uL (0.0-0.1); Basophils % 0.8 %; Eosinophils # 0.2 10^3/uL (0.0-0.8); Eosinophils % 2.4 %; Hematocrit 47.1 % (37.0-47.0); Hemoglobin 15.3 g/dL (11.5-15.3); Lymphocytes # 2.5 10^3/uL (0.8-4.8); Lymphocytes % 39.8 %; Mean Corpuscular HGB Conc 32.5 g/dL (30.0-36.0); Mean Corpuscular Hemoglobin 29.3 pg (28.0-34.0); Mean Corpuscular Volume 90.1 fL (81-99); Mean Platelet Volume 10.1 fL (7.4-10.4); Monocytes # 0.6 10^3/uL (0.2-0.9); Monocytes % 9.5 %; Neutrophils # 2.93 10^3/uL (1.8-7.7); Neutrophils % 47.2 %; Nucleated Red Blood Cells % 0 %; Platelet Count 172 10^3/cmm (130-400); Red Blood Count 5.23 10^6/uL (4.1-5.3); Red Cell Distribution Width 12.7 % (12.1-15.1); White Blood Count 6.2 10^3/uL (4.0-10.0)
[2021-01-30 03:01] LABS: Add Urine Microscopic? YES; Bilirubin Urine Neg (Negative); Blood Urine Neg (Negative); Glucose Urine UA Norm (Normal); Ketones Urine Negative (Negative); Leukocyte Esterase Urine 2+ (Negative); Nitrate Urine Negative (Negative); Protein Urine Neg (Negative); Urine Appearance SL Hazy (CLEAR); Urine Color Yellow (Yellow); Urobilinogen Urine Norm (Negative); pH Urine 8 (5-7)
[2021-01-30 03:02] LABS: Amorphous Sediment Urine 2+ /hpf; Bacteria Urine TRACE /hpf; RBC Urine 0-4 /hpf (0-2); Sulfosalicylic Acid Urine Negative (Negative); WBC Urine 15-25 /hpf (0-5)
[2021-01-30 03:09] LABS: Alanine Aminotransferase 13 U/L (0-33); Albumin Level 4.2 g/dL (3.5-5.2); Alkaline Phosphatase 165 IU/L (35-105); Anion Gap 16.1 (5-19); Aspartate Amino Transferase 17 U/L (0-32); Blood Urea Nitrogen 10 mg/dL (8-23); Calcium 9.2 mg/dL (8.5-10.5); Carbon Dioxide 27 mmol/L (22-29); Chloride 102 mmol/L (98-107); Globulin 3.2 g/dL (1.3-4.6); Glucose 128 mg/dL (65-115); Lipase 17 U/L (13-60); Osmolality Calculated 293 mOsm/kg (285-295); Potassium 4.1 mmol/L (3.5-5.1); Sodium 141 mmol/L (136-145); Total Bilirubin 0.6 mg/dL (0.15-1.2); Total Protein 7.4 g/dL (6.6-8.7)
--- NOTE | 2021-01-30 03:14 | ED_ITS ---
HPI - Back Pain/Injury General: Chief Complaint: Back Pain/Injury Stated Complaint: Left Lower Back Pain Time Seen by Provider: 01/30/21 02:31 Source: patient Mode of arrival: ambulatory Limitations: no limitations History of Present Illness: HPI Narrative: 75-year-old female states that she has been having low back pain over the last 2 weeks. She had a fall 2 weeks ago where she had a T12 fracture. She states that she is admitted here to the hospital for a urinary tract infection as well and she has had pain since then. States pain is sharp in nature. She denies abdominal pain. She has follow-up with neurosurgeon on . Denies any bowel or bladder incontinence. Associated symptoms: Deny abdominal pain, chills, dysuria, fever(s), nausea or vomiting Review of Systems Const: Denies: fever(s), chills, body aches or change in appetite Eyes: Denies: blurry vision or eye discomfort ENMT: Denies: throat pain or dental pain Card: Denies: chest pain Resp: Denies: dyspnea GI: Denies: abdominal pain, nausea, vomiting or diarrhea : Denies: dysuria Musc: Reports: back pain Skin/Breast: Denies: rash Neuro: Denies: headache(s) Psych: Denies: depression Kenneth/Lymph: Denies: easy bruising All/Imm: Denies: urticaria PFSH ED PFSH: Medical History (Updated 01/30/21 @ 03:36 by Brenna Floyd MD) Degenerative lumbar spinal stenosis Essential hypertension Optic neuritis Surgical History H/O knee surgery H/O tubal ligation History of right hip replacement Family History Other CAD (coronary artery disease) Hyperlipidemia Hypertension Stroke Social History Smoking and tobacco status: never smoked Alcohol intake: never Physical Exam Const: COMMON NORMALS: no acute distress, patient oriented x3 and healthy appearing HENMT: COMMON NORMALS: normocephalic and atraumatic HEAD & SCALP: normocephalic and atraumatic Eye: COMMON NORMALS: Equal, round and reactive pupils present and EOMs intact bilaterally PUPIL: Yes Equal, round and reactive pupils present Neck/C-Spine: COMMON NORMALS: full ROM and supple Chest: COMMONS NORMALS: normal inspection of the chest and normal palpation of entire chest wall Resp: COMMON NORMALS: normal respiratory effort, No retractions, No use of accessory muscles and clear to auscultation bilaterally AUSCULTATION: clear to auscultation bilaterally Cardio: COMMON NORMALS: regular rate, regular rhythm and No murmurs present (Cardio) RATE: regular rate RHYTHM: regular rhythm GI: COMMON NORMALS: Normal to inspection, nondistended, normoactive bowel sounds present, Soft to palpation, non-tender and no masses PALPATION: Yes Soft to palpation Back/Pelvis: OTHER: Tenderness over left flank Extremity: COMMON NORMALS: normal to inspection and full ROM Neuro: COMMON NORMALS: patient oriented x3, moves all extremities and no focal motor deficits Psych: COMMON NORMALS: mental status grossly normal, Normal thought process present and cooperative THOUGHT PROCESS: Normal thought process present Skin: COMMON NORMALS: no rashes or lesions noted and no wounds GENERAL SKIN EXAM: no rashes or lesions noted Course Vital Signs: Vital signs: Vital Signs Temperature 97.5 F L 01/30/21 02:15 Pulse Rate 90 01/30/21 02:15 Respiratory Rate 16 01/30/21 02:15 Blood Pressure 204/100 01/30/21 02:15 Pulse Oximetry 95 01/30/21 02:15 MDM - Back Pain/Injury MDM Narrative: Medical decision making narrative: Patient presents here with back pain likely from her thoracic fracture. Abdominal exam here is benign and her white count here is normal. Urinalysis shows no signs of urinary tract infection. She has no signs of AAA or pyelonephritis. She had a recent CT scan 2 weeks ago of her abdomen that was normal besides the thoracic fracture. She has a follow-up with spine surgeon on and will place on pain meds until then. Her pain is much improved here. Lab Data: Labs: Lab Results 01/30/21 01/30/21 01/30/21 Range/Units 02:48 02:48 02:48 WBC 6.2 (4.0-10.0) 10^3/ uL RBC 5.23 (4.1-5.3) 10^6/u L Hgb 15.3 (11.5-15.3) g/dL Hct 47.1 H (37.0-47.0) % MCV 90.1 (81-99) fL MCH 29.3 (28.0-34.0) pg MCHC 32.5 (30.0-36.0) g/dL RDW 12.7 (12.1-15.1) % Plt Count 172 (130-400) 10^3/c mm MPV 10.1 (7.4-10.4) fL Neut % (Auto) 47.2 % Lymph % (Auto) 39.8 % [place] % (Auto) 9.5 % Eos % (Auto) 2.4 % Baso % (Auto) 0.8 % Neut # (Auto) 2.93 (1.8-7.7) 10^3/u L Lymph # (Auto) 2.5 (0.8-4.8) 10^3/u L [place] # (Auto) 0.6 (0.2-0.9) 10^3/u L Eos # (Auto) 0.2 (0.0-0.8) 10^3/u L Baso # (Auto) 0.1 (0.0-0.1) 10^3/u L Nucleated RBC % (a uto) 0 % Nucleated RBCs # 0.0 /100WBC Sodium 141 (136-145) mmol/L Potassium 4.1 (3.5-5.1) mmol/L Chloride 102 (98-107) mmol/L Carbon Dioxide 27 (22-29) mmol/L Anion Gap 16.1 (5-19) BUN 10 (8-23) mg/dL Creatinine 0.5 (0.5-0.9) mg/dL GFR Calculation Not Reportable Glucose 128 H (65-115) mg/dL Calculated Osmolal ity 293 (285-295) mOsm/k g Calcium 9.2 (8.5-10.5) mg/dL Total Bilirubin 0.6 (0.15-1.2) mg/dL AST 17 (0-32) U/L ALT 13 (0-33) U/L Alkaline Phosphata se 165 H (35-105) IU/L Total Protein 7.4 (6.6-8.7) g/dL Albumin 4.2 (3.5-5.2) g/dL Globulin 3.2 (1.3-4.6) g/dL Lipase 17 (13-60) U/L Urine Color Yellow (Yellow) Urine Appearance Sl hazy (CLEAR) Urine pH 8 H (5-7) Ur Specific Gravit y 1.010 (1.005-1.030) Urine Protein Neg (Negative) Urine Glucose (UA) Norm (Normal) Urine Ketones Negative (Negative) Urine Blood Neg (Negative) Urine Nitrate Negative (Negative) Urine Bilirubin Neg (Negative) Prot Sulfosalicyli c Acd Negative (Negative) Urine Urobilinogen Norm (Negative) mg/dL Ur Leukocyte Kalee ase 2+ H (Negative) Urine RBC 0-4 H (0-2) /hpf Urine WBC 15-25 H (0-5) /hpf Ur Squamous Epith Cells 10-15 H (0-5) /hpf Ur Renal Epithelia l Cell 5-10 /hpf Amorphous Sediment 2+ /hpf Urine Bacteria Trace (NONE) /hpf Discharge Plan Discharge Patient Disposition: Home Clinical Impression: Back pain Qualifiers: Back pain location: thoracic back pain Chronicity: acute Back pain laterality: left Qualified Code(s): M54.6 - Pain in thoracic spine Condition: Stable Prescriptions: New hydrocodone-acetaminophen 5-325 mg tablet 1 tab PO Q6H PRN (Reason: pain) Qty: 14 RF: 0 Robaxin-750 750 mg tablet 750 mg PO Q6H Qty: 30 RF: 0 Miralax 17 gram powder in packet 17 g PO DAILY PRN (Reason: constipation) Qty: 14 RF: 0 No Action prednisolone acetate 1 % drops,suspension 1 drp ophthalmic (eye) QID RF: 0 Alphagan P 0.1 % drops 1 drp ophthalmic (eye) BID RF: 0 Lumigan 0.01 % drops 1 drp ophthalmic (eye) BID RF: 0 lisinopril 20 mg Tablet 20 mg PO DAILY 30 Days Qty: 30 RF: 0 Discharge Orders: Discharge ED (Routine); Ordered 01/30/21 Ordered By: Brenna Floyd Referrals: Shara Jung DO [Primary Care Provider] - Discharge Diet: Advance as tolerated Discharge Activity: Resume usual activity Patient Instructions: Back Pain (ED), Opioid Safety Coding Level of Care Code ED Sales Service Supervisor for Chg Fwd Exam Comprehensive
[2021-01-30 04:16] VITALS: BP 122/75; PULSE 80; RESP 18; O2SAT 95
== END 2021-01-30 04:16 | disposition home or self-care (01) ==
PROVIDERS: Nurse Practitioner Family; Emergency Provider Emergency Medicine; PCP Family Medicine
DX: M54.6 Pain in thoracic spine (principal); I10 Essential (primary) hypertension
CPT/HCPCS: 80053; 81001; 83690; 85025; 96374; 96375; 99283; J1170; J2405

== ENCOUNTER → 2021-01-31 15:12 | Outpatient (BNVA) | payer MEDICARE, OTHER, SELFPAY | PROVIDERS: PCP Family Medicine; Referring Provider Family Medicine; Visit Provider Orthopaedic Surgery | DX: M54.9 Dorsalgia, unspecified (principal); M19.90 Unspecified osteoarthritis, unspecified site; M48.54XA Collapsed vertebra, not elsewhere classified, thoracic region, initial encounter for fracture | CPT/HCPCS: 72110 ==

== ENCOUNTER → 2021-02-19 10:07 | Outpatient (BNVA) | payer MEDICARE, OTHER, SELFPAY | PROVIDERS: PCP Family Medicine; Visit Provider Orthopaedic Surgery | DX: M54.9 Dorsalgia, unspecified (principal); S22.088S Other fracture of T11-T12 vertebra, sequela; X58.XXXS Exposure to other specified factors, sequela | CPT/HCPCS: 72080 ==

== ENCOUNTER 2021-03-01 12:52 | Outpatient (CLI) | payer MEDICARE, OTHER, SELFPAY ==
--- NOTE | 2021-03-01 13:30 | USCV_ITS ---
Homar Ivania Age: 76 Gender: F : 1945 Exam Date: 03/01/2021 13:23 Ordering Phys: Shara Jung DO Technologist: Rhonda Saucedo Exam Location: [facility] – [place] Indication: BRUIT RT CCA Risk Factors: Unknown Previous Vascular Surgery: None Right Brachial BP: / Left Brachial BP: / Right Left Velocity (cm/s) Spectral Plaque Velocity (cm/s) Spectral Plaque Syst/Diast Broadening Syst/Diast Broadening 110.30/29.80 Prox CCA 96.30 / 18.60 94.80/ 29.80 Mid CCA 87.10 / 24.30 87.10/ 22.10 Distal CCA 91.50 / 20.90 133.60/49.70 Hetro Prox ICA 68.70 / 16.20 90.10/ 32.60 Mid ICA 109.10/ 33.90 124.30/43.50 Distal ICA 116.40/ 36.90 217.10 ECA 106.10 1.41 ICA/CCA 1.34 Antegrade Vertebral Antegrade 101.0/ 26.40 cm/s 80.40/ 20.40 cm/s 0 Bi Subclavian Bi 111.9 87.70 0 FINDINGS Moderate heterogeneous plaques at the right bifurcation and proximal internal carotid artery Mild to moderate plaques of the left bifurcation and proximal internal carotid artery with Doppler features, consistent with less than 50% stenosis . Intimal thickening in the common carotid arteries bilaterally. Antegrade flow in the vertebral arteries bilaterally. Elevated velocity in the right external carotid artery, the proximal segment Normal Doppler flow velocities in the subclavian arteries bilaterally CONCLUSIONS Moderate heterogeneous plaques at the right bifurcation and proximal internal carotid artery with elevated Doppler velocities, consistent with 50 to 69% stenosis. Mild to moderate plaques at the left bifurcation and proximal internal carotid artery with Doppler features, consistent with less than 50% stenosis . Elevated velocity in the external carotid artery on the right side, suggestive of hemodynamically significant stenosis. Intimal thickening in the common carotid arteries bilaterally. . Dr Becky Verdin MD [facility] (Electronically Signed) Final Date: 01 March 2021 16:03 S
== END 2021-03-01 12:53 | disposition home or self-care (01) ==
LOC: US 12:56
PROVIDERS: PCP Family Medicine; Visit Provider Family Medicine
DX: R09.89 Other specified symptoms and signs involving the circulatory and respiratory systems (principal); I65.23 Occlusion and stenosis of bilateral carotid arteries
CPT/HCPCS: 93880

== ENCOUNTER → 2021-04-02 10:56 | Outpatient (BNVA) | payer MEDICARE, OTHER, SELFPAY | PROVIDERS: PCP Family Medicine; Visit Provider Orthopaedic Surgery | DX: M54.9 Dorsalgia, unspecified (principal); S22.088S Other fracture of T11-T12 vertebra, sequela; X58.XXXS Exposure to other specified factors, sequela | CPT/HCPCS: 72070 ==

== ENCOUNTER → 2021-05-14 12:02 | Outpatient (BNVA) | payer MEDICARE, OTHER, SELFPAY | PROVIDERS: PCP Family Medicine; Visit Provider Family Medicine | DX: R30.0 Dysuria (principal); Z13.6 Encounter for screening for cardiovascular disorders; R73.03 Prediabetes | CPT/HCPCS: 80053; 80061; 81000; 83036; 85025; 87077; 87086; 87184 ==

== ENCOUNTER 2021-10-01 10:50 | Outpatient (CLI) | payer MEDICARE, OTHER, SELFPAY ==
--- NOTE | 2021-10-01 11:00 | USCV_ITS ---
Homar Ivania Age: 76 Gender: F : 1945 Exam Date: 10/01/2021 10:58 Ordering Phys: Richi Lane MD (Andy) ([email or web address] [place] Technologist: Exam Location: [facility] [place] Indication: hx of cca disease Risk Factors: Previous Vascular Surgery: Right Brachial BP: / Left Brachial BP: / Right Left Velocity (cm/s) Spectral Plaque Velocity (cm/s) Spectral Plaque Syst/Diast Broadening Syst/Diast Broadening 72.80/ 16.50 Prox CCA 68.10 / 14.30 82.55/ 20.50 Mid CCA 62.70 / 13.40 84.90/ 26.50 Hetro Distal CCA 72.50 / 13.40 105.20/26.30 Hetro Prox ICA 88.20 / 26.10 Hetro 90.00/ 27.00 Hetro Mid ICA 114.30/ 28.60 Humberto 84.00/ 24.80 Distal ICA 94.70 / 24.50 Hetro 224.90 ECA 148.60 1.03 ICA/CCA 1.62 Vertebral Antegrade 84.70/ 13.10 cm/s 52.30/ 11.40 cm/s Bi Subclavian Bi 71.60 101.2 0 FINDINGS Comparison 03/09 CONCLUSIONS Right ICA stenosis <50%. Mild calcified atheromatous plaque right carotid bulb/ICA. Velocities decreased MAGAN compared to previous. Left ICA stenosis <50%. Mild calcified atheromatous plaque left carotid bulb/ICA. Velocities stable since previous. Normal antegrade Doppler flow noted in the right vertebral artery. Normal antegrade Doppler flow noted in the left vertebral artery. Bhaskar Epps MD (Electronically Signed) Final Date: 01 October 2021 13:50 S
== END 2021-10-01 10:51 | disposition home or self-care (01) ==
LOC: RAD 10:51
PROVIDERS: PCP Family Medicine; Visit Provider Thoracic Surgery (Cardiothoracic Vascular Surgery)
DX: I65.23 Occlusion and stenosis of bilateral carotid arteries (principal)
CPT/HCPCS: 93880

== ENCOUNTER → 2021-11-08 10:02 | Outpatient (BNVA) | payer MEDICARE, OTHER, SELFPAY | PROVIDERS: PCP Family Medicine; Visit Provider Thoracic Surgery (Cardiothoracic Vascular Surgery) | DX: I77.9 Disorder of arteries and arterioles, unspecified (principal) | CPT/HCPCS: 99212; 99213 ==

== ENCOUNTER 2021-12-06 09:04 | Outpatient (CLI) | payer MEDICARE, OTHER, SELFPAY ==
--- NOTE | 2021-12-06 09:18 | XR_ITS ---
WS: [id number] Right hip, AP and frog-leg views, 12/06/2021 Clinical Data: chronic right hip pain Comparison: Right hip x-ray, 06/02/2017. 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 No loosening is seen. There are no adjacent frac tures of the proximal femur or pelvis. Soft tissues are normal. XR/XR hip RT 2-3V wo/w pel* [id number] Impression: No change in right hip arthroplasty
== END 2021-12-06 09:05 | disposition home or self-care (01) ==
LOC: RAD 09:12
PROVIDERS: PCP Family Medicine; Visit Provider Family Medicine
DX: M25.551 Pain in right hip (principal); G89.29 Other chronic pain
CPT/HCPCS: 73502

== ENCOUNTER 2022-01-14 11:10 | Outpatient (CLI) | payer MEDICARE, OTHER, SELFPAY ==
--- NOTE | 2022-01-14 11:45 | MR_ITS ---
WS: [id number] MRI LEFT KNEE NONCONTRAST TECHNIQUE: Axial PD, coronal PD fat sat, coronal PD, sagittal PD, and sagittal PD fat-sat images obta ined. CLINICAL INFORMATION: OA of left knee COMPARISON: MRI FINDINGS: Distal quadriceps and patella tendons are intact. Hypertrophic patella. Small joint effusion. Prepate llar and infrapatellar soft tissue edema. Normal PCL. High-grade complete tear of the ACL is new from . No normal ACL fibers are visual ized. Advanced joint space narrowing involving the medial and lateral joint compartments with bone-on -bone articulation. This is progressed compared to 2017. Grade III chondromalacia involving the media l and lateral joint compartments. Chronic thinning of the medial and lateral meniscus similar to previous. Chronic horizontal tear invo lving the medial meniscus extending to the meniscal root and articular surface unchanged from previou s. Chronic intrasubstance signal abnormality involving the anterior horn lateral meniscus. Advanced chondromalacia patella grade 4 with subchondral edema. This is worse involving the lateral p atella facet. Medial and lateral patellar retinacula appear intact. Hypertrophic changes along the adenike int line. Lobulated ganglion cyst involving the dorsal intercondylar notch measuring 1.6 x 1.2 x 1.9 cm. Adjacent associated edema within the posterior lateral femoral condyle. This is new from previous . Medial and lateral collateral ligaments are intact. Normal popliteus. Normal popliteal fossa. MR/MR knee LT wo con* [id number] IMPRESSION: 1. High-grade tear of the ACL is new from 2017. No normal ACL fibers. PCL is i ntact. 2. Advanced degenerative narrowing involving the medial and lateral joint comp artments with grade III chondromalacia progressed compared to previous. Chronic thinning of the medial and lateral meniscus with chronic tears. 3. Grade IV chondromalacia patella worse involving the lateral patella facet w ith a small amount of subchondral edema. 4. Lobulated ganglion cyst along the posterior intercondylar notch in the dist al femur measuring 1.6 x 1.2 x 1.8 cm. Associated edema within the adjacent lat eral femoral condyle likely degenerative or inflammatory. 5. Small amount of prepatellar and infrapatellar soft tissue edema. Small join t effusion. Outbridge grading: grade IV: full-thickness cartilage loss with underlying bone reactive changes
== END 2022-01-14 11:11 | disposition home or self-care (01) ==
LOC: RAD 11:10
PROVIDERS: PCP Family Medicine; Visit Provider Family Medicine
DX: M17.12 Unilateral primary osteoarthritis, left knee (principal)
CPT/HCPCS: 73721

== ENCOUNTER 2022-04-15 14:01 | Outpatient (CLI) | payer MEDICARE, OTHER, SELFPAY ==
--- NOTE | 2022-04-15 14:14 | MR_ITS ---
WS: [id number] MRI LUMBAR SPINE NONCONTRAST TECHNIQUE: Sagittal T1, T2 and STIR imaging. Axial T1 and T2 imaging. CLINICAL INFORMATION: LUMBAR RADICULOPATHY COMPARISON: MRI 2016 FINDINGS: Mild lumbar curve. No acute compression Chronic biconcave compression deformity at T12 unchanged from January 31, 2021. Grade 1 anterolisthesis L4 on L5 measuring 10 mm. T11-T12: Tiny central protrusion. Mild central canal stenosis. Mild facet arthropathy. Mild bilateral foraminal narrowing. T12-L1:Mild annular bulging. Mild facet arthropathy. Spinal canal and foramen are patent. L1-L2: Mild annular bulging. Mild facet arthropathy. Spinal canal and foramen are patent. L2-L3: Mild annular bulging. Mild facet arthropathy. Narrowing of the subarticular recess bilaterally . Mild RIGHT greater than LEFT foraminal narrowing. L3-L4: Mild annular bulging. Impingement on the traversing RIGHT greater than LEFT L4 nerve root in t he subarticular recess. Moderate facet arthropathy. Mild RIGHT greater than LEFT foraminal narrowing. Moderate facet arthropathy. L4-L5: Grade 1 anterolisthesis L4 on L5 with severe central canal stenosis. Advanced facet arthropath y. Moderate LEFT foraminal narrowing. L5-S1: Disc osteophyte complex with endplate ridging. Moderate RIGHT L5-S1 foraminal narrowing imping es the exiting RIGHT L5 nerve root. Impingement traversing RIGHT greater than LEFT S1 nerve roots. Mi ld facet arthropathy. RIGHT renal cysts. Visualized pelvic bony structures: Normal. Paravertebral soft tissues: Normal. MR/MR lumbar spine wo con* [id number] IMPRESSION: 1. Severe central canal stenosis L4-L5 with grade 1 anterolisthesis in combina tion with facet arthropathy ligamentum flavum hypertrophy. This is progressed c ompared to 2016. 2. Chronic biconcave compression T12. 3. Mild central canal stenosis T11-T12. 4. Mild central canal stenosis L3-L4 with impingement RIGHT greater than LEFT subarticular recess. 5. Disc osteophyte complex L5-S1 impingement traversing S1 nerve roots. Modera te RIGHT L5-S1 foraminal narrowing. 6. Moderate RIGHT L3-L4 and LEFT L4-L5 foraminal narrowing. 7. Advanced facet arthropathy L4-L5.
== END 2022-04-15 14:02 | disposition home or self-care (01) ==
LOC: RAD 14:02
PROVIDERS: PCP Family Medicine; Visit Provider Orthopaedic Surgery
DX: M54.16 Radiculopathy, lumbar region (principal); M48.061 Spinal stenosis, lumbar region without neurogenic claudication; M48.04 Spinal stenosis, thoracic region; M25.78 Osteophyte, vertebrae; M47.816 Spondylosis without myelopathy or radiculopathy, lumbar region
CPT/HCPCS: 72148

== ENCOUNTER → 2022-05-16 10:24 | Outpatient (BNVA) | payer MEDICARE, OTHER, SELFPAY | PROVIDERS: PCP Family Medicine; Visit Provider Family Medicine | DX: R35.0 Frequency of micturition (principal) | CPT/HCPCS: 87077; 87086; 87184 ==

== ENCOUNTER → 2022-07-03 14:35 | Outpatient (BNVA) | payer MEDICARE, OTHER, SELFPAY | PROVIDERS: PCP Family Medicine; Visit Provider Family Medicine | DX: R53.83 Other fatigue (principal) | CPT/HCPCS: 80053; 85025 ==

== ENCOUNTER → 2022-07-17 15:34 | Outpatient (BNVA) | payer MEDICARE, OTHER, SELFPAY | PROVIDERS: PCP Family Medicine; Visit Provider Family Medicine | DX: R30.0 Dysuria (principal) | CPT/HCPCS: 81000; 87077; 87086; 87184 ==

== ENCOUNTER 2022-09-22 11:34 | Outpatient (CLI) | payer MEDICARE, OTHER, SELFPAY ==
--- NOTE | 2022-09-22 12:00 | USCV_ITS ---
Graf Ivania Age: 77 Gender: F : 1945 Exam Date: 09/22/2022 12:02 Ordering Phys: Richi Lane MD (Andy) [email or web address] [place] Technologist: Tony Perez [place] [facility] [place]ication: carotid stenosis Risk Factors: Previous Vascular Surgery: Right Brachial BP: / Left Brachial BP: / Right Left Velocity (cm/s) Spectral Plaque Velocity (cm/s) Spectral Plaque Syst/Diast Broadening Syst/Diast Broadening 76.30/ 20.40 Prox CCA 126.00/ 24.60 91.70/ 24.90 Mid CCA 89.50 / 20.60 83.10/ 20.20 Distal CCA 89.40 / 19.70 122.30/31.60 Prox ICA 122.40/ 30.90 100.80/35.90 Mid ICA 104.70/ 41.90 134.50/47.40 Distal ICA 115.80/ 25.40 243.30 ECA 177.10 1.10 ICA/CCA 1.17 Antegrade Vertebral Antegrade 80.60/ 22.40 cm/s 62.40/ 15.80 cm/s Bi Subclavian Bi 78.40 56.10 CONCLUSIONS Right ICA stenosis <50%. Mild atheromatous plaque right carotid bulb/ICA. Left ICA stenosis <50%. Mild atheromatous plaque left carotid bulb/ICA. Normal antegrade Doppler flow noted in the right vertebral artery. Normal antegrade Doppler flow noted in the right vertebral artery. Bhaskar Epps MD (Electronically Signed) Final Date: 22 September 2022 13:05 S
== END 2022-09-22 11:35 | disposition home or self-care (01) ==
PROVIDERS: PCP Family Medicine; Visit Provider Thoracic Surgery (Cardiothoracic Vascular Surgery)
DX: I65.23 Occlusion and stenosis of bilateral carotid arteries (principal)
CPT/HCPCS: 93880

== ENCOUNTER → 2022-10-30 14:25 | Outpatient (BNVA) | payer MEDICARE, OTHER, SELFPAY | PROVIDERS: PCP Family Medicine; Visit Provider Thoracic Surgery (Cardiothoracic Vascular Surgery) | DX: I77.9 Disorder of arteries and arterioles, unspecified (principal) | CPT/HCPCS: 99213 ==

== ENCOUNTER → 2023-02-23 11:35 | Outpatient (BNVA) | payer MEDICARE, OTHER, SELFPAY | PROVIDERS: PCP Family Medicine; Visit Provider Family Medicine | DX: Z13.6 Encounter for screening for cardiovascular disorders (principal) | CPT/HCPCS: 80053; 80061; 83036; 85025 ==

== ENCOUNTER → 2023-03-20 08:02 | Outpatient (BNVA) | payer MEDICARE, OTHER, SELFPAY | PROVIDERS: PCP Family Medicine; Visit Provider Nurse Practitioner Family | DX: R35.0 Frequency of micturition (principal); N30.01 Acute cystitis with hematuria | CPT/HCPCS: 81000; 87077; 87086; 87184 ==

== ENCOUNTER → 2023-03-30 11:06 | Outpatient (BNVA) | payer MEDICARE, OTHER, SELFPAY | PROVIDERS: PCP Family Medicine; Visit Provider Nurse Practitioner Family | DX: N39.0 Urinary tract infection, site not specified (principal) | CPT/HCPCS: 81000 ==

== ENCOUNTER 2023-11-23 09:53 | Outpatient (CLI) | payer MEDICARE, SELFPAY ==
--- NOTE | 2023-11-23 10:15 | USCV_ITS ---
Graf Ivania Age: 78 Gender: F : 1945 Exam Date: 11/23/2023 10:14 Ordering Phys: Richi Lane MD (Andy) ([email or web address] – [place]) Technologist: DAO Exam Location: [facility] – [place] Indication: Stenosis Risk Factors: Previous Vascular Surgery: Right Brachial BP: / Left Brachial BP: / Right Left Velocity (cm/s) Spectral Plaque Velocity (cm/s) Spectral Plaque Syst/Diast Broadening Syst/Diast Broadening 106.10/18.00 Prox CCA 103.60/ 21.10 97.00/ 21.90 Mid CCA 113.90/ 21.10 94.40/ 23.20 Distal CCA 93.30 / 18.50 119.60/35.30 Prox ICA 129.30/ 28.90 127.80/39.50 Mid ICA 108.70/ 18.50 103.80/29.80 Distal ICA 76.80 / 18.00 201.30 ECA 149.90 1.40 ICA/CCA 1.40 Antegrade Vertebral Antegrade 76.20/ 20.30 cm/s 51.40/ 10.00 cm/s Tri Subclavian Tri 152.0 153.2 0 0 FINDINGS Comparison:. 09/22/22 No significant elevation of systolic or diastolic velocities. Mild turbulence but no stenosis. Mild diffuse carotid atherosclerosis. Antegrade vertebral arteries. CONCLUSIONS Bilateral ICA stenosis less than 50%. No interval change in stenosis since prior exam. Dr. Phyllis Fatima DO (Electronically Signed) Final Date: 23 Nov 2023 11:34 S
== END 2023-11-23 09:54 | disposition home or self-care (01) ==
LOC: RAD 09:53
PROVIDERS: PCP Family Medicine; Visit Provider Thoracic Surgery (Cardiothoracic Vascular Surgery)
DX: I65.23 Occlusion and stenosis of bilateral carotid arteries (principal)
CPT/HCPCS: 93880

== ENCOUNTER → 2023-11-30 10:15 | Outpatient (BNVA) | payer MEDICARE, SELFPAY | PROVIDERS: PCP Family Medicine; Visit Provider Thoracic Surgery (Cardiothoracic Vascular Surgery) | DX: I77.9 Disorder of arteries and arterioles, unspecified (principal) | CPT/HCPCS: 99213 ==

== ENCOUNTER → 2024-05-12 09:18 | Outpatient (BNVA) | payer MEDICARE, SELFPAY | PROVIDERS: PCP Family Medicine | DX: R39.9 Unspecified symptoms and signs involving the genitourinary system (principal) | CPT/HCPCS: 81000 ==

== ENCOUNTER → 2024-08-01 11:44 | Outpatient (BNVA) | payer MEDICARE, SELFPAY | PROVIDERS: PCP Family Medicine; Visit Provider Family Medicine | DX: I10 Essential (primary) hypertension (principal); R09.89 Other specified symptoms and signs involving the circulatory and respiratory systems; I77.9 Disorder of arteries and arterioles, unspecified; E78.00 Pure hypercholesterolemia, unspecified; D69.6 Thrombocytopenia, unspecified; R73.03 Prediabetes; M19.011 Primary osteoarthritis, right shoulder | CPT/HCPCS: 80053; 80061; 83036; 84443; 85025 ==

== ENCOUNTER → 2024-08-08 09:12 | Outpatient (BNVA) | payer MEDICARE, SELFPAY | PROVIDERS: PCP Family Medicine | DX: R39.9 Unspecified symptoms and signs involving the genitourinary system (principal); N39.0 Urinary tract infection, site not specified | CPT/HCPCS: 81000; 87086 ==

== ENCOUNTER 2024-08-15 12:43 | Outpatient (CLI) | payer MEDICARE, SELFPAY ==
--- NOTE | 2024-08-15 12:49 | XR_ITS ---
WS: [id number] Exam: XR shoulder RT min 2V* [id number] Date/Time of Exam: 08/15/2024 12:50 PM Reason For Exam: Right shoulder pain/frozen shoulder/OA No fracture or dislocation. There is end-stage osteoarthritis of the glenohumeral joint with bone-on- bone articulation. Prominent osteophytes project from the medial inferior aspect of the humeral head. AC joint DJD. XR/XR shoulder RT min 2V* [id number] IMPRESSION: 1. End-stage osteoarthritis of the glenohumeral joint with [id number] articul ation. AC joint DJD also noted.
== END 2024-08-15 12:44 | disposition home or self-care (01) ==
LOC: RAD 12:48
PROVIDERS: PCP Family Medicine; Visit Provider Family Medicine
DX: M19.011 Primary osteoarthritis, right shoulder (principal); M17.12 Unilateral primary osteoarthritis, left knee; M25.711 Osteophyte, right shoulder
CPT/HCPCS: 73030

== ENCOUNTER → 2024-09-02 09:20 | Outpatient (BNVA) | payer MEDICARE, SELFPAY | PROVIDERS: PCP Family Medicine | DX: R39.9 Unspecified symptoms and signs involving the genitourinary system (principal) | CPT/HCPCS: 81000 ==

== ENCOUNTER → 2024-10-12 10:17 | Outpatient (BNVA) | payer MEDICARE, SELFPAY | PROVIDERS: PCP Family Medicine; Visit Provider Student in an Organized Health Care Education/Training Program | DX: M19.011 Primary osteoarthritis, right shoulder (principal) | CPT/HCPCS: 99204 ==

== ENCOUNTER → 2024-12-16 12:40 | Outpatient (BNVA) | payer MEDICARE, SELFPAY | PROVIDERS: PCP Family Medicine | DX: R39.9 Unspecified symptoms and signs involving the genitourinary system (principal) | CPT/HCPCS: 81000; 87086 ==

== ENCOUNTER → 2025-01-30 08:42 | Outpatient (BNVA) | payer MEDICARE, SELFPAY | PROVIDERS: PCP Family Medicine | DX: R39.9 Unspecified symptoms and signs involving the genitourinary system (principal) | CPT/HCPCS: 81000 ==

== ENCOUNTER → 2025-03-10 08:03 | Outpatient (BNVA) | payer MEDICARE, SELFPAY | PROVIDERS: PCP Family Medicine; Visit Provider Family Medicine Adult Medicine | DX: R39.9 Unspecified symptoms and signs involving the genitourinary system (principal) | CPT/HCPCS: 81000 ==

== ENCOUNTER → 2025-05-09 13:33 | Outpatient (BNVA) | payer MEDICARE, SELFPAY | PROVIDERS: PCP Family Medicine; Visit Provider Emergency Medicine | DX: R39.9 Unspecified symptoms and signs involving the genitourinary system (principal) | CPT/HCPCS: 81000 ==

== ENCOUNTER → 2025-05-27 10:27 | Outpatient (BNVA) | payer MEDICARE, SELFPAY | PROVIDERS: PCP Family Medicine; Visit Provider Family Medicine | DX: R39.9 Unspecified symptoms and signs involving the genitourinary system (principal) | CPT/HCPCS: 81000 ==

== ENCOUNTER → 2025-07-03 08:26 | Outpatient (BNVA) | payer MEDICARE, SELFPAY | PROVIDERS: PCP Family Medicine | DX: R39.89 Other symptoms and signs involving the genitourinary system (principal) | CPT/HCPCS: 81000; 87086 ==